=== PATIENT | female | born 1950 | race Caucasian/White ===

== ENCOUNTER 2017-06-04 22:21 | Inpatient (IN) | payer OTHER ==
[2017-06-04] MEDS: DEXTROSE 5%-0.9% NACL 1,000 ML IV (23:30)
[2017-06-05] MEDS: LEVOTHYROXINE 50 MCG TAB PO (05:54)
[2017-06-05] MEDS: PANTOPRAZOLE 40 MG INJ IV (05:54)
[2017-06-05] MEDS: BUPROPION (SR) 150 MG TAB PO ×2 (09:00→09:55)
[2017-06-05] MEDS: ASPIRIN 81 MG TAB GTB (09:00)
[2017-06-05] MEDS: OXYBUTYNIN 5 MG TAB PO ×4 (09:00→20:53)
[2017-06-05] MEDS: CALCIUM CARBONATE 1.25 GM TAB GTB ×3 (09:00→20:57)
[2017-06-05] MEDS: LORAZEPAM 1 MG TAB PO ×2 (09:00→20:55)
[2017-06-05] MEDS ORDERED: CEFTRIAXONE 1 GM INJ IVPB (09:00)
[2017-06-05] MEDS: GABAPENTIN 300 MG CAP PO ×4 (09:00→20:53)
[2017-06-05] MEDS: CEFTRIAXONE 1 GM/NS 50 ML IVPB (09:39)
[2017-06-05] MEDS: LORAZEPAM 2 MG INJ IV (11:37)
[2017-06-05] MEDS: DEXTROSE 5%-0.9% NACL 1,000 ML IV (14:51)
[2017-06-05] MEDS: LEVOFLOXACIN 500MG/D5W (PMX) 100 ML IVPB (16:27)
[2017-06-05 17:02] LABS: INR 1.07; PT RATIO 1.1
[2017-06-05 17:14] LABS: ALANINE AMINOTRANSFERASE 24 IU/L (13-69); ALBUMIN 3.3 g/dl (3.3-4.9); ALBUMIN/GLOBULIN RATIO 1.37; ALKALINE PHOSPHATASE 51 IU/L (42-121); ANION GAP 12 (8-16); ASPARTATE AMINO TRANSFERASE 18 IU/L (15-46); BLOOD UREA NITROGEN 5 mg/dl (7-20); CALCIUM 8.5 mg/dl (8.4-10.2); CARBON DIOXIDE 28 mmol/L (21-31); CHLORIDE 108 mmol/L (97-110); CREATININE 0.75 mg/dl (0.44-1.00); GLUCOSE 99 mg/dl (70-220); POTASSIUM 3.8 mmol/L (3.5-5.1); SODIUM 144 mmol/L (135-144); TOTAL PROTEIN 5.7 g/dl (6.1-8.1)
[2017-06-05] MEDS: metroNIDAZOLE 500 MG/NS (PMX) 100 ML IVPB ×2 (17:43→22:07)
[2017-06-05] MEDS: ATORVASTATIN 20 MG TAB PO (20:51)
[2017-06-05] MEDS: traZODone 100 MG TAB PO (20:51)
[2017-06-05] MEDS: IMIPRAMINE 25 MG TAB PO (20:53)
[2017-06-05] MEDS: ASPIRIN 81 MG TAB PO (20:53)
[2017-06-05] MEDS: DIVALPROEX (ER) 500 MG TAB PO (20:56)
[2017-06-06] MEDS: DEXTROSE 5%-0.9% NACL 1,000 ML IV ×2 (04:06→17:13)
[2017-06-06 05:16] LABS: ADD MAN DIFF? NO
[2017-06-06 05:27] LABS: BASOPHILS % 0.5 % (0.0-2.0); EOSINOPHILS # 0.9 10^3/ul (0.0-0.5); EOSINOPHILS % 14.8 % (0.0-7.0); HEMATOCRIT 35.3 % (37.0-47.0); HEMOGLOBIN 11.5 g/dl (12.0-16.0); LYMPHOCYTES # 1.5 10^3/ul (0.8-2.9); LYMPHOCYTES % 26.7 % (15.0-51.0); MEAN CORPUSCULAR HEMOGLOBIN 32.4 pg (29.0-33.0); MEAN CORPUSCULAR HGB CONC 32.6 g/dl (32.0-37.0); MEAN CORPUSCULAR VOLUME 99.4 fl (82.0-101.0); MEAN PLATELET VOLUME 10.3 fl (7.4-10.4); MONOCYTE # 0.5 10^3/ul (0.3-0.9); MONOCYTES % 9.4 % (0.0-11.0); NEUTROPHIL # 2.8 10^3/ul (1.6-7.5); NEUTROPHILS % 48.1 % (39.0-77.0); PLATELET COUNT 143 10^3/UL (140-415); RED BLOOD COUNT 3.55 10^6/ul (4.20-5.40); RED CELL DISTRIBUTION WIDTH 12.8 % (11.5-14.5)
[2017-06-06 05:27] LABS: WHITE BLOOD COUNT 5.8 10^3/ul (4.8-10.8)
[2017-06-06] MEDS: PANTOPRAZOLE 40 MG INJ IV (05:30)
[2017-06-06] MEDS: LEVOTHYROXINE 50 MCG TAB PO (05:30)
[2017-06-06] MEDS: metroNIDAZOLE 500 MG/NS (PMX) 100 ML IVPB ×3 (05:31→21:35)
[2017-06-06 05:46] LABS: ALANINE AMINOTRANSFERASE 24 IU/L (13-69); ALBUMIN 2.8 g/dl (3.3-4.9); ALBUMIN/GLOBULIN RATIO 1.21; ALKALINE PHOSPHATASE 47 IU/L (42-121); AMYLASE 31 U/L (11-123); ANION GAP 11 (8-16); ASPARTATE AMINO TRANSFERASE 16 IU/L (15-46); BLOOD UREA NITROGEN 4 mg/dl (7-20); CALCIUM 8.7 mg/dl (8.4-10.2); CARBON DIOXIDE 29 mmol/L (21-31); CHLORIDE 111 mmol/L (97-110); CREATININE 0.84 mg/dl (0.44-1.00); GLUCOSE 122 mg/dl (70-220); LIPASE 34 U/L (23-300); POTASSIUM 3.7 mmol/L (3.5-5.1); SODIUM 147 mmol/L (135-144); TOTAL PROTEIN 5.1 g/dl (6.1-8.1)
[2017-06-06] MEDS: CEFTRIAXONE 1 GM/50 ML (PMX) 50 ML IVPB (08:27)
[2017-06-06] MEDS: BUPROPION (SR) 150 MG TAB PO (09:00)
[2017-06-06] MEDS: CALCIUM CARBONATE 1.25 GM TAB GTB ×2 (09:00→20:21)
[2017-06-06] MEDS: GABAPENTIN 300 MG CAP PO ×3 (09:00→20:20)
[2017-06-06] MEDS: OXYBUTYNIN 5 MG TAB PO ×3 (09:00→20:24)
[2017-06-06] MEDS ORDERED: FENTAnyl 50 MCG/ML VIAL (11:22)
[2017-06-06] MEDS ORDERED: ROCURONIUM 50 MG INJ (11:23)
[2017-06-06] MEDS ORDERED: PROPOFOL 20 ML (11:23)
[2017-06-06] MEDS ORDERED: LIDOCAINE 2% (SDV) 5 ML INJ (11:23)
[2017-06-06] MEDS ORDERED: ONDANSETRON 4 MG INJ (11:23)
[2017-06-06] MEDS ORDERED: SUGAMMADEX SODIUM 200 MG/2 ML VIAL IV (11:24)
[2017-06-06] MEDS ORDERED: CIPROFLOXACIN 400MG/D5W 200 ML (12:08)
[2017-06-06] MEDS ORDERED: ONDANSETRON 4 MG INJ IV (13:30)
[2017-06-06] MEDS: FENTAnyl 50 MCG/ML VIAL IV (13:45)
[2017-06-06] MEDS: INDOMETHACIN 50 MG SUPP PR (14:00)
[2017-06-06] MEDS: HYDROCODONE/APAP (5/325) TAB PO (17:10)
[2017-06-06] MEDS: ACETAMINOPHEN 325 MG TAB PO (19:52)
[2017-06-06] MEDS: ATORVASTATIN 20 MG TAB PO (20:23)
[2017-06-06] MEDS: traZODone 100 MG TAB PO (20:23)
[2017-06-06] MEDS: ASPIRIN 81 MG TAB PO (20:23)
[2017-06-06] MEDS: IMIPRAMINE 25 MG TAB PO (20:24)
[2017-06-06] MEDS: LORAZEPAM 1 MG TAB PO (20:24)
[2017-06-06] MEDS: DIVALPROEX (ER) 500 MG TAB PO (21:34)
[2017-06-06] MEDS: morphine 2 MG INJ IV (22:15)
[2017-06-07] MEDS: morphine 2 MG INJ IV ×3 (02:02→13:56)
[2017-06-07 05:29] LABS: ADD MAN DIFF? NO; BASOPHILS % 0.2 % (0.0-2.0); EOSINOPHILS # 0.9 10^3/ul (0.0-0.5); EOSINOPHILS % 8.1 % (0.0-7.0); HEMATOCRIT 37.1 % (37.0-47.0); HEMOGLOBIN 12.4 g/dl (12.0-16.0); LYMPHOCYTES % 9.3 % (15.0-51.0); MEAN CORPUSCULAR HEMOGLOBIN 32.2 pg (29.0-33.0); MEAN CORPUSCULAR HGB CONC 33.4 g/dl (32.0-37.0); MEAN CORPUSCULAR VOLUME 96.4 fl (82.0-101.0); MEAN PLATELET VOLUME 10.3 fl (7.4-10.4); MONOCYTE # 0.5 10^3/ul (0.3-0.9); MONOCYTES % 4.2 % (0.0-11.0); NEUTROPHIL # 8.3 10^3/ul (1.6-7.5); NEUTROPHILS % 77.5 % (39.0-77.0); PLATELET COUNT 152 10^3/UL (140-415); RED BLOOD COUNT 3.85 10^6/ul (4.20-5.40); RED CELL DISTRIBUTION WIDTH 12.7 % (11.5-14.5)
[2017-06-07 05:29] LABS: WHITE BLOOD COUNT 10.7 10^3/ul (4.8-10.8)
[2017-06-07 05:42] LABS: ALANINE AMINOTRANSFERASE 24 IU/L (13-69); ALBUMIN 3.1 g/dl (3.3-4.9); ALBUMIN/GLOBULIN RATIO 1.24; ALKALINE PHOSPHATASE 62 IU/L (42-121); ANION GAP 13 (8-16); ASPARTATE AMINO TRANSFERASE 18 IU/L (15-46); BILIRUBIN,INDIRECT 0.1 mg/dl (0-1.1); BILIRUBIN,TOTAL 0.1 mg/dl (0.2-1.3); BLOOD UREA NITROGEN 5 mg/dl (7-20); CALCIUM 8.5 mg/dl (8.4-10.2); CARBON DIOXIDE 26 mmol/L (21-31); CHLORIDE 101 mmol/L (97-110); GLUCOSE 154 mg/dl (70-220); POTASSIUM 3.9 mmol/L (3.5-5.1); SODIUM 136 mmol/L (135-144); TOTAL PROTEIN 5.6 g/dl (6.1-8.1)
[2017-06-07 05:58] LABS: MAGNESIUM 1.5 mg/dl (1.7-2.5)
[2017-06-07 05:58] LABS: PHOSPHORUS 2.6 mg/dl (2.5-4.9)
[2017-06-07] MEDS: metroNIDAZOLE 500 MG/NS (PMX) 100 ML IVPB ×3 (06:03→23:07)
[2017-06-07] MEDS: PANTOPRAZOLE 40 MG INJ IV (06:03)
[2017-06-07] MEDS: LEVOTHYROXINE 50 MCG TAB PO (06:03)
[2017-06-07] MEDS: OXYBUTYNIN 5 MG TAB PO ×3 (08:33→20:41)
[2017-06-07] MEDS: GABAPENTIN 300 MG CAP PO ×3 (08:33→20:41)
[2017-06-07] MEDS: CEFTRIAXONE 1 GM/50 ML (PMX) 50 ML IVPB (08:33)
[2017-06-07] MEDS: CALCIUM CARBONATE 1.25 GM TAB GTB (08:34)
[2017-06-07] MEDS: BUPROPION (SR) 150 MG TAB PO (08:45)
[2017-06-07] MEDS: DEXTROSE 5%-0.9% NACL 1,000 ML IV (08:47)
[2017-06-07] MEDS: MAGNESIUM SULFATE 3 GM in DEXTROSE 5% 100 ML IVPB (13:57)
[2017-06-07] MEDS: ONDANSETRON 4 MG INJ IV (16:31)
[2017-06-07] MEDS: BISACODYL (EC) 5 MG TAB PO (16:31)
[2017-06-07] MEDS ORDERED: ONDANSETRON 4 MG INJ IV (17:00)
[2017-06-07] MEDS: traZODone 100 MG TAB PO (20:41)
[2017-06-07] MEDS: DIVALPROEX (ER) 500 MG TAB PO (20:41)
[2017-06-07] MEDS: ATORVASTATIN 20 MG TAB PO (20:41)
[2017-06-07] MEDS: ASPIRIN 81 MG TAB PO (20:41)
[2017-06-07] MEDS: IMIPRAMINE 25 MG TAB PO (20:41)
[2017-06-07] MEDS: LORAZEPAM 1 MG TAB PO (20:43)
[2017-06-07] MEDS: LUBIPROSTONE 24 MCG CAP PO (20:44)
[2017-06-08] MEDS: morphine 2 MG INJ IV ×3 (02:02→13:41)
[2017-06-08] MEDS: LEVOTHYROXINE 50 MCG TAB PO (06:00)
[2017-06-08] MEDS: metroNIDAZOLE 500 MG/NS (PMX) 100 ML IVPB ×3 (06:00→23:20)
[2017-06-08] MEDS: PANTOPRAZOLE 40 MG INJ IV (06:00)
[2017-06-08 06:14] LABS: ADD MAN DIFF? NO
[2017-06-08 06:19] LABS: WHITE BLOOD COUNT 12.5 10^3/ul (4.8-10.8)
[2017-06-08 06:19] LABS: BASOPHILS % 0.2 % (0.0-2.0); EOSINOPHILS # 1.3 10^3/ul (0.0-0.5); EOSINOPHILS % 10.2 % (0.0-7.0); HEMATOCRIT 40.3 % (37.0-47.0); HEMOGLOBIN 13.5 g/dl (12.0-16.0); LYMPHOCYTES # 1.5 10^3/ul (0.8-2.9); LYMPHOCYTES % 12.4 % (15.0-51.0); MEAN CORPUSCULAR HEMOGLOBIN 32.3 pg (29.0-33.0); MEAN CORPUSCULAR HGB CONC 33.5 g/dl (32.0-37.0); MEAN CORPUSCULAR VOLUME 96.4 fl (82.0-101.0); MEAN PLATELET VOLUME 10.5 fl (7.4-10.4); MONOCYTE # 0.9 10^3/ul (0.3-0.9); MONOCYTES % 7.1 % (0.0-11.0); NEUTROPHIL # 8.7 10^3/ul (1.6-7.5); NEUTROPHILS % 69.7 % (39.0-77.0); PLATELET COUNT 166 10^3/UL (140-415); RED BLOOD COUNT 4.18 10^6/ul (4.20-5.40); RED CELL DISTRIBUTION WIDTH 12.8 % (11.5-14.5)
[2017-06-08 06:44] LABS: PHOSPHORUS 3.3 mg/dl (2.5-4.9)
[2017-06-08 06:44] LABS: MAGNESIUM 2.3 mg/dl (1.7-2.5)
[2017-06-08 06:54] LABS: ALANINE AMINOTRANSFERASE 21 IU/L (13-69); ALBUMIN 3.2 g/dl (3.3-4.9); ALBUMIN/GLOBULIN RATIO 1.28; ALKALINE PHOSPHATASE 72 IU/L (42-121); ANION GAP 14 (8-16); ASPARTATE AMINO TRANSFERASE 18 IU/L (15-46); BILIRUBIN,INDIRECT 0.1 mg/dl (0-1.1); BILIRUBIN,TOTAL 0.1 mg/dl (0.2-1.3); BLOOD UREA NITROGEN 9 mg/dl (7-20); CALCIUM 8.6 mg/dl (8.4-10.2); CARBON DIOXIDE 26 mmol/L (21-31); CHLORIDE 104 mmol/L (97-110); CREATININE 0.82 mg/dl (0.44-1.00); GLUCOSE 100 mg/dl (70-220); POTASSIUM 3.4 mmol/L (3.5-5.1); SODIUM 141 mmol/L (135-144); TOTAL PROTEIN 5.7 g/dl (6.1-8.1)
[2017-06-08] MEDS: OXYBUTYNIN 5 MG TAB PO ×3 (07:58→20:30)
[2017-06-08] MEDS: LUBIPROSTONE 24 MCG CAP PO ×2 (07:58→20:31)
[2017-06-08] MEDS: CEFTRIAXONE 1 GM/50 ML (PMX) 50 ML IVPB (07:58)
[2017-06-08] MEDS: GABAPENTIN 300 MG CAP PO ×3 (07:59→20:31)
[2017-06-08] MEDS: BUPROPION (SR) 150 MG TAB PO (08:04)
[2017-06-08] MEDS: POTASSIUM CHLORIDE (SR) 20 MEQ TAB PO (10:13)
[2017-06-08] MEDS: BISACODYL (EC) 5 MG TAB PO (16:51)
[2017-06-08] MEDS: BISACODYL 10 MG SUPP PR (16:51)
[2017-06-08] MEDS: PANTOPRAZOLE (EC) 40 MG TAB PO (17:53)
[2017-06-08] MEDS: ATORVASTATIN 20 MG TAB PO (20:31)
[2017-06-08] MEDS: DIVALPROEX (ER) 500 MG TAB PO (20:31)
[2017-06-08] MEDS: ASPIRIN 81 MG TAB PO (20:31)
[2017-06-08] MEDS: LORAZEPAM 1 MG TAB PO (20:31)
[2017-06-08] MEDS: IMIPRAMINE 25 MG TAB PO (20:31)
[2017-06-08] MEDS: traZODone 100 MG TAB PO (20:31)
[2017-06-09] MEDS: NA PHOSPHATE/BIPHOS 133 ML ENEMA PR (01:11)
[2017-06-09] MEDS ORDERED: PANTOPRAZOLE (EC) 40 MG TAB PO (06:00)
[2017-06-09] MEDS: LEVOTHYROXINE 50 MCG TAB PO (06:18)
[2017-06-09] MEDS: PANTOPRAZOLE (EC) 40 MG TAB PO ×2 (06:18→18:33)
[2017-06-09] MEDS: metroNIDAZOLE 500 MG/NS (PMX) 100 ML IVPB ×3 (06:19→22:19)
[2017-06-09 06:36] LABS: ADD MAN DIFF? NO
[2017-06-09 06:40] LABS: ANION GAP 13 (8-16); BLOOD UREA NITROGEN 15 mg/dl (7-20); CALCIUM 8.3 mg/dl (8.4-10.2); CARBON DIOXIDE 28 mmol/L (21-31); CHLORIDE 101 mmol/L (97-110); CREATININE 0.89 mg/dl (0.44-1.00); GLUCOSE 105 mg/dl (70-220); POTASSIUM 3.9 mmol/L (3.5-5.1); SODIUM 138 mmol/L (135-144)
[2017-06-09] MEDS: LUBIPROSTONE 24 MCG CAP PO ×2 (09:36→20:13)
[2017-06-09] MEDS: GABAPENTIN 300 MG CAP PO ×3 (09:36→20:13)
[2017-06-09] MEDS: BUPROPION (SR) 150 MG TAB PO (09:37)
[2017-06-09] MEDS: OXYBUTYNIN 5 MG TAB PO ×3 (09:42→20:13)
[2017-06-09] MEDS: BISACODYL (EC) 5 MG TAB PO (09:42)
[2017-06-09 10:16] LABS: WHITE BLOOD COUNT 14.8 10^3/ul (4.8-10.8)
[2017-06-09 10:16] LABS: HEMATOCRIT 37.4 % (37.0-47.0); HEMOGLOBIN 12.5 g/dl (12.0-16.0); MEAN CORPUSCULAR HEMOGLOBIN 32.7 pg (29.0-33.0); MEAN CORPUSCULAR HGB CONC 33.4 g/dl (32.0-37.0); MEAN CORPUSCULAR VOLUME 97.9 fl (82.0-101.0); RED BLOOD COUNT 3.82 10^6/ul (4.20-5.40)
[2017-06-09 10:17] LABS: BASOPHILS % 0.2 % (0.0-2.0); EOSINOPHILS % 4.5 % (0.0-7.0); LYMPHOCYTES % 10.6 % (15.0-51.0); MEAN PLATELET VOLUME 10.2 fl (7.4-10.4); MONOCYTES % 9.3 % (0.0-11.0); NEUTROPHILS % 74.7 % (39.0-77.0); PLATELET COUNT 139 10^3/UL (140-415); RED CELL DISTRIBUTION WIDTH 13.1 % (11.5-14.5)
[2017-06-09] MEDS: CEFTRIAXONE 1 GM/50 ML (PMX) 50 ML IVPB (10:21)
[2017-06-09] MEDS: HYDROCODONE/APAP (5/325) TAB PO (12:32)
[2017-06-09] MEDS: BISACODYL 10 MG SUPP PR (12:46)
[2017-06-09] MEDS: MEROPENEM 1 GM/50ML(PMX) 50 ML IVPB ×2 (15:35→23:18)
[2017-06-09 18:30] LABS: ADD UMIC YES; UR ASCORBIC ACID NEGATIVE (NEGATIVE); UR BILIRUBIN (Dip) NEGATIVE (NEGATIVE); UR BLOOD (Dip) 1+ mg/dL (NEGATIVE); UR CLARITY CLEAR (CLEAR); UR COLOR YELLOW (YELLOW); UR GLUCOSE (Dip) NEGATIVE (NEGATIVE); UR KETONES (Dip) TRACE mg/dL (NEGATIVE); UR LEUKOCYTE ESTERASE (Dip) NEGATIVE Leu/ul (NEGATIVE); UR NITRITE (Dip) NEGATIVE (NEGATIVE); UR RBC 2 /HPF (0-5); UR SPECIFIC GRAVITY (Dip) 1.006 (1.003-1.030); UR TOTAL PROTEIN (Dip) NEGATIVE (NEGATIVE); UR UROBILINOGEN (Dip) NEGATIVE (NEGATIVE); UR WBC 1 /HPF (0-5)
[2017-06-09] MEDS: traZODone 100 MG TAB PO (20:13)
[2017-06-09] MEDS: ACETAMINOPHEN 325 MG TAB PO (20:14)
[2017-06-09] MEDS: DIVALPROEX (ER) 500 MG TAB PO (20:14)
[2017-06-09] MEDS: ASPIRIN 81 MG TAB PO (20:14)
[2017-06-09] MEDS: IMIPRAMINE 25 MG TAB PO (20:14)
[2017-06-09] MEDS: ATORVASTATIN 20 MG TAB PO (20:25)
[2017-06-09] MEDS: LORAZEPAM 1 MG TAB PO (20:30)
[2017-06-10] MEDS: PANTOPRAZOLE (EC) 40 MG TAB PO ×2 (06:00→18:00)
[2017-06-10] MEDS: LEVOTHYROXINE 50 MCG TAB PO (06:05)
[2017-06-10] MEDS: metroNIDAZOLE 500 MG/NS (PMX) 100 ML IVPB ×3 (06:06→20:31)
[2017-06-10] MEDS: ACETAMINOPHEN 325 MG TAB PO ×3 (06:09→21:28)
[2017-06-10 06:32] LABS: ADD MAN DIFF? NO
[2017-06-10 06:42] LABS: WHITE BLOOD COUNT 14.4 10^3/ul (4.8-10.8)
[2017-06-10 06:42] LABS: BASOPHILS % 0.3 % (0.0-2.0); EOSINOPHILS # 1.7 10^3/ul (0.0-0.5); EOSINOPHILS % 11.5 % (0.0-7.0); HEMATOCRIT 37.2 % (37.0-47.0); HEMOGLOBIN 12.2 g/dl (12.0-16.0); LYMPHOCYTES # 1.1 10^3/ul (0.8-2.9); LYMPHOCYTES % 7.8 % (15.0-51.0); MEAN CORPUSCULAR HEMOGLOBIN 32.6 pg (29.0-33.0); MEAN CORPUSCULAR HGB CONC 32.8 g/dl (32.0-37.0); MEAN CORPUSCULAR VOLUME 99.5 fl (82.0-101.0); MEAN PLATELET VOLUME 10.8 fl (7.4-10.4); MONOCYTE # 1.3 10^3/ul (0.3-0.9); MONOCYTES % 8.8 % (0.0-11.0); NEUTROPHIL # 10.2 10^3/ul (1.6-7.5); NEUTROPHILS % 70.8 % (39.0-77.0); PLATELET COUNT 152 10^3/UL (140-415); RED BLOOD COUNT 3.74 10^6/ul (4.20-5.40); RED CELL DISTRIBUTION WIDTH 13.2 % (11.5-14.5)
[2017-06-10 08:17] LABS: CARCINOEMBRYONIC ANTIGEN 1.1 ng/ml (0.0-5.0)
[2017-06-10] MEDS: MEROPENEM 1 GM/50ML(PMX) 50 ML IVPB ×2 (09:34→21:56)
[2017-06-10] MEDS: LUBIPROSTONE 24 MCG CAP PO ×2 (09:37→20:36)
[2017-06-10] MEDS: OXYBUTYNIN 5 MG TAB PO ×3 (09:37→20:42)
[2017-06-10] MEDS: GABAPENTIN 300 MG CAP PO ×3 (09:50→20:37)
[2017-06-10] MEDS: BUPROPION (SR) 150 MG TAB PO (09:51)
[2017-06-10] MEDS: ASPIRIN 81 MG TAB PO (20:37)
[2017-06-10] MEDS: IMIPRAMINE 25 MG TAB PO (20:37)
[2017-06-10] MEDS: DIVALPROEX (ER) 500 MG TAB PO (20:37)
[2017-06-10] MEDS: traZODone 100 MG TAB PO (20:37)
[2017-06-10] MEDS: LORAZEPAM 1 MG TAB PO (20:37)
[2017-06-10] MEDS: ATORVASTATIN 20 MG TAB PO (20:37)
[2017-06-11 00:24] LABS: OCCULT BLOOD STOOL NEGATIVE (NEGATIVE)
[2017-06-11] MEDS: HYDROCODONE/APAP (5/325) TAB PO (01:58)
[2017-06-11] MEDS: metroNIDAZOLE 500 MG/NS (PMX) 100 ML IVPB ×3 (05:47→22:17)
[2017-06-11] MEDS: PANTOPRAZOLE (EC) 40 MG TAB PO ×2 (05:47→17:52)
[2017-06-11] MEDS: LEVOTHYROXINE 50 MCG TAB PO (05:47)
[2017-06-11 06:22] LABS: ADD MAN DIFF? NO
[2017-06-11 06:32] LABS: WHITE BLOOD COUNT 12.4 10^3/ul (4.8-10.8)
[2017-06-11 06:32] LABS: BASOPHILS % 0.3 % (0.0-2.0); EOSINOPHILS # 1.9 10^3/ul (0.0-0.5); EOSINOPHILS % 15.3 % (0.0-7.0); HEMATOCRIT 34.5 % (37.0-47.0); HEMOGLOBIN 11.3 g/dl (12.0-16.0); LYMPHOCYTES # 1.8 10^3/ul (0.8-2.9); LYMPHOCYTES % 14.7 % (15.0-51.0); MEAN CORPUSCULAR HEMOGLOBIN 32.3 pg (29.0-33.0); MEAN CORPUSCULAR HGB CONC 32.8 g/dl (32.0-37.0); MEAN CORPUSCULAR VOLUME 98.6 fl (82.0-101.0); MEAN PLATELET VOLUME 10.6 fl (7.4-10.4); MONOCYTES % 8.1 % (0.0-11.0); NEUTROPHIL # 7.5 10^3/ul (1.6-7.5); NEUTROPHILS % 60.6 % (39.0-77.0); PLATELET COUNT 148 10^3/UL (140-415); RED CELL DISTRIBUTION WIDTH 13.2 % (11.5-14.5)
[2017-06-11] MEDS: GABAPENTIN 300 MG CAP PO ×3 (08:19→21:24)
[2017-06-11] MEDS: LUBIPROSTONE 24 MCG CAP PO ×2 (08:19→21:23)
[2017-06-11] MEDS: BUPROPION (SR) 150 MG TAB PO (08:19)
[2017-06-11] MEDS: OXYBUTYNIN 5 MG TAB PO ×3 (08:19→21:23)
[2017-06-11] MEDS: MEROPENEM 1 GM/50ML(PMX) 50 ML IVPB ×2 (09:28→21:24)
[2017-06-11] MEDS: DIVALPROEX (ER) 500 MG TAB PO (21:23)
[2017-06-11] MEDS: ASPIRIN 81 MG TAB PO (21:23)
[2017-06-11] MEDS: ATORVASTATIN 20 MG TAB PO (21:24)
[2017-06-11] MEDS: IMIPRAMINE 25 MG TAB PO (21:24)
[2017-06-11] MEDS: LORAZEPAM 1 MG TAB PO (21:24)
[2017-06-11] MEDS: traZODone 100 MG TAB PO (21:24)
[2017-06-11] MEDS: DEXTROSE 5%-0.45% NACL 1,000 ML IV (23:45)
[2017-06-12 05:14] LABS: ADD MAN DIFF? NO
[2017-06-12] MEDS: PANTOPRAZOLE (EC) 40 MG TAB PO ×2 (05:15→19:05)
[2017-06-12] MEDS: metroNIDAZOLE 500 MG/NS (PMX) 100 ML IVPB ×2 (05:15→14:00)
[2017-06-12] MEDS: LEVOTHYROXINE 50 MCG TAB PO (05:15)
[2017-06-12 05:22] LABS: BASOPHIL # 0.1 10^3/ul (0.0-0.1); BASOPHILS % 0.7 % (0.0-2.0); EOSINOPHILS % 8.6 % (0.0-7.0); HEMATOCRIT 35.1 % (37.0-47.0); HEMOGLOBIN 11.3 g/dl (12.0-16.0); MEAN CORPUSCULAR HEMOGLOBIN 31.5 pg (29.0-33.0); MEAN CORPUSCULAR HGB CONC 32.2 g/dl (32.0-37.0); MEAN CORPUSCULAR VOLUME 97.8 fl (82.0-101.0); MEAN PLATELET VOLUME 10.1 fl (7.4-10.4); MONOCYTE # 1.1 10^3/ul (0.3-0.9); MONOCYTES % 9.5 % (0.0-11.0); NEUTROPHIL # 7.5 10^3/ul (1.6-7.5); NEUTROPHILS % 63.4 % (39.0-77.0); NUCLEATED RED BLOOD CELLS% 0.2 /100WBC (0.0-0.0); PLATELET COUNT 184 10^3/UL (140-415); RED BLOOD COUNT 3.59 10^6/ul (4.20-5.40); RED CELL DISTRIBUTION WIDTH 13.6 % (11.5-14.5)
[2017-06-12 05:22] LABS: WHITE BLOOD COUNT 11.9 10^3/ul (4.8-10.8)
[2017-06-12 05:44] LABS: PHOSPHORUS 3.9 mg/dl (2.5-4.9)
[2017-06-12 05:44] LABS: MAGNESIUM 1.6 mg/dl (1.7-2.5)
[2017-06-12 05:48] LABS: ALANINE AMINOTRANSFERASE 26 IU/L (13-69); ALBUMIN 3.3 g/dl (3.3-4.9); ALKALINE PHOSPHATASE 75 IU/L (42-121); ANION GAP 16 (8-16); ASPARTATE AMINO TRANSFERASE 20 IU/L (15-46); BLOOD UREA NITROGEN 9 mg/dl (7-20); CALCIUM 8.9 mg/dl (8.4-10.2); CARBON DIOXIDE 27 mmol/L (21-31); CHLORIDE 102 mmol/L (97-110); CREATININE 0.74 mg/dl (0.44-1.00); GLUCOSE 99 mg/dl (70-220); POTASSIUM 3.7 mmol/L (3.5-5.1); SODIUM 141 mmol/L (135-144); TOTAL PROTEIN 6.3 g/dl (6.1-8.1)
[2017-06-12] MEDS: GABAPENTIN 300 MG CAP PO ×3 (08:37→21:27)
[2017-06-12] MEDS: OXYBUTYNIN 5 MG TAB PO ×3 (08:37→21:27)
[2017-06-12] MEDS: MEROPENEM 1 GM/50ML(PMX) 50 ML IVPB ×2 (08:40→21:52)
[2017-06-12] MEDS: LUBIPROSTONE 24 MCG CAP PO ×2 (08:40→21:27)
[2017-06-12] MEDS: BUPROPION (SR) 150 MG TAB PO (08:42)
[2017-06-12] MEDS: DEXTROSE 5%-0.45% NACL 1,000 ML IV (12:20)
[2017-06-12] MEDS ORDERED: IOHEXOL 300MG/ML 30 ML BTL (13:37)
[2017-06-12] MEDS: MAGNESIUM OXIDE 400 MG TAB PO (21:27)
[2017-06-12] MEDS: ATORVASTATIN 20 MG TAB PO (21:27)
[2017-06-12] MEDS: IMIPRAMINE 25 MG TAB PO (21:27)
[2017-06-12] MEDS: HYDROCODONE/APAP (5/325) TAB PO (21:27)
[2017-06-12] MEDS: LORAZEPAM 1 MG TAB PO (21:28)
[2017-06-12] MEDS: traZODone 100 MG TAB PO (21:28)
[2017-06-12] MEDS: DIVALPROEX (ER) 500 MG TAB PO (21:52)
[2017-06-13] MEDS: LORAZEPAM 2 MG INJ IV (00:34)
[2017-06-13] MEDS: LEVOTHYROXINE 50 MCG TAB PO (05:14)
[2017-06-13] MEDS: PANTOPRAZOLE (EC) 40 MG TAB PO ×2 (05:14→17:55)
[2017-06-13] MEDS: MAGNESIUM OXIDE 400 MG TAB PO (09:00)
[2017-06-13] MEDS: OXYBUTYNIN 5 MG TAB PO ×3 (09:00→20:34)
[2017-06-13] MEDS: LUBIPROSTONE 24 MCG CAP PO ×2 (09:00→20:33)
[2017-06-13] MEDS: GABAPENTIN 300 MG CAP PO ×3 (09:00→20:34)
[2017-06-13] MEDS: BUPROPION (SR) 150 MG TAB PO (09:00)
[2017-06-13] MEDS: MEROPENEM 1 GM/50ML(PMX) 50 ML IVPB ×2 (11:28→20:33)
[2017-06-13] MEDS ORDERED: LIDOCAINE 1% (MPF) 30 ML INJ (12:59)
[2017-06-13] MEDS ORDERED: BUPIVACAINE 0.25%/EPI (SDV) 30 ML INJ (12:59)
[2017-06-13] MEDS ORDERED: MIDAZOLAM 1 MG/ML 2 ML INJ (13:13)
[2017-06-13] MEDS ORDERED: METOCLOPRAMIDE 10 MG INJ (13:14)
[2017-06-13] MEDS ORDERED: ONDANSETRON 4 MG INJ IV (13:30)
[2017-06-13] MEDS ORDERED: HYDROmorphONE (0.2 MG/ML) 10ML SYG IV ×3 (13:30)
[2017-06-13] MEDS ORDERED: MEPERIDINE 25 MG INJ IV (13:30)
[2017-06-13] MEDS ORDERED: DIPHENHYDRAMINE 50 MG INJ IV (13:30)
[2017-06-13] MEDS ORDERED: NEOSTIGMINE 3 MG/3 ML SYRINGE (13:56)
[2017-06-13] MEDS ORDERED: ROCURONIUM 50 MG INJ (13:56)
[2017-06-13] MEDS ORDERED: KETOROLAC 30 MG INJ (13:56)
[2017-06-13] MEDS ORDERED: PROPOFOL 20 ML (13:56)
[2017-06-13] MEDS ORDERED: ROPIVACAINE 0.5 % 30 ML VIAL (13:58)
[2017-06-13] MEDS ORDERED: ONDANSETRON 4 MG INJ (13:58)
[2017-06-13] MEDS: LIDOCAINE 1% (MPF) 30 ML INJ (14:00)
[2017-06-13] MEDS: BUPIVACAINE 0.25%/EPI (SDV) 30 ML INJ (14:01)
[2017-06-13] MEDS ORDERED: FENTAnyl 50 MCG/ML VIAL (14:26)
[2017-06-13] MEDS: LORAZEPAM 1 MG TAB PO (20:33)
[2017-06-13] MEDS: ATORVASTATIN 20 MG TAB PO (20:34)
[2017-06-13] MEDS: traZODone 100 MG TAB PO (20:34)
[2017-06-13] MEDS: DIVALPROEX (ER) 500 MG TAB PO (20:34)
[2017-06-13] MEDS: ASPIRIN 81 MG TAB PO (20:34)
[2017-06-13] MEDS: IMIPRAMINE 25 MG TAB PO (20:34)
[2017-06-13] MEDS: HYDROCODONE/APAP (5/325) TAB PO (20:36)
[2017-06-14] MEDS ORDERED: HYDROCODONE/APAP (10/325) TAB PO (00:30)
[2017-06-14] MEDS ORDERED: MAGNESIUM HYDROXIDE 30ML CUP PO (00:30)
[2017-06-14] MEDS: HYDROCODONE/APAP (5/325) TAB PO ×4 (01:49→23:22)
[2017-06-14 05:17] LABS: ADD MAN DIFF? NO
[2017-06-14 05:22] LABS: WHITE BLOOD COUNT 9.3 10^3/ul (4.8-10.8)
[2017-06-14 05:22] LABS: BASOPHIL # 0.1 10^3/ul (0.0-0.1); BASOPHILS % 0.6 % (0.0-2.0); EOSINOPHILS # 0.4 10^3/ul (0.0-0.5); EOSINOPHILS % 3.8 % (0.0-7.0); HEMOGLOBIN 11.9 g/dl (12.0-16.0); LYMPHOCYTES # 1.3 10^3/ul (0.8-2.9); LYMPHOCYTES % 14.4 % (15.0-51.0); MEAN CORPUSCULAR HEMOGLOBIN 32.2 pg (29.0-33.0); MEAN CORPUSCULAR HGB CONC 32.2 g/dl (32.0-37.0); MEAN CORPUSCULAR VOLUME 100.3 fl (82.0-101.0); MEAN PLATELET VOLUME 10.2 fl (7.4-10.4); MONOCYTE # 0.8 10^3/ul (0.3-0.9); NEUTROPHIL # 6.6 10^3/ul (1.6-7.5); NEUTROPHILS % 70.9 % (39.0-77.0); PLATELET COUNT 178 10^3/UL (140-415); RED BLOOD COUNT 3.69 10^6/ul (4.20-5.40); RED CELL DISTRIBUTION WIDTH 13.4 % (11.5-14.5)
[2017-06-14] MEDS: PANTOPRAZOLE (EC) 40 MG TAB PO ×2 (05:45→18:41)
[2017-06-14] MEDS: LEVOTHYROXINE 50 MCG TAB PO (05:45)
[2017-06-14 06:03] LABS: MAGNESIUM 1.9 mg/dl (1.7-2.5)
[2017-06-14 06:03] LABS: PHOSPHORUS 3.5 mg/dl (2.5-4.9)
[2017-06-14 06:09] LABS: ALANINE AMINOTRANSFERASE 44 IU/L (13-69); ALBUMIN/GLOBULIN RATIO 1.03; ALKALINE PHOSPHATASE 78 IU/L (42-121); ANION GAP 11 (8-16); ASPARTATE AMINO TRANSFERASE 64 IU/L (15-46); BILIRUBIN,INDIRECT 0.3 mg/dl (0-1.1); BILIRUBIN,TOTAL 0.3 mg/dl (0.2-1.3); BLOOD UREA NITROGEN 5 mg/dl (7-20); CARBON DIOXIDE 33 mmol/L (21-31); CHLORIDE 106 mmol/L (97-110); CREATININE 0.66 mg/dl (0.44-1.00); GLUCOSE 121 mg/dl (70-220); POTASSIUM 4.1 mmol/L (3.5-5.1); SODIUM 146 mmol/L (135-144); TOTAL PROTEIN 5.9 g/dl (6.1-8.1)
[2017-06-14] MEDS: MEROPENEM 1 GM/50ML(PMX) 50 ML IVPB (09:21)
[2017-06-14] MEDS: OXYBUTYNIN 5 MG TAB PO ×3 (09:22→20:32)
[2017-06-14] MEDS: BUPROPION (SR) 150 MG TAB PO (09:22)
[2017-06-14] MEDS: LUBIPROSTONE 24 MCG CAP PO ×2 (09:22→20:32)
[2017-06-14] MEDS: GABAPENTIN 300 MG CAP PO ×3 (09:24→20:32)
[2017-06-14] MEDS: BISACODYL (EC) 5 MG TAB PO (18:41)
[2017-06-14] MEDS: DIVALPROEX (ER) 500 MG TAB PO (20:32)
[2017-06-14] MEDS: ATORVASTATIN 20 MG TAB PO (20:32)
[2017-06-14] MEDS: traZODone 100 MG TAB PO (20:32)
[2017-06-14] MEDS: ASPIRIN 81 MG TAB PO (20:32)
[2017-06-14] MEDS: IMIPRAMINE 25 MG TAB PO (20:32)
[2017-06-14] MEDS: LORAZEPAM 1 MG TAB PO (20:33)
[2017-06-15] MEDS: ACETAMINOPHEN 325 MG TAB PO (02:34)
[2017-06-15] MEDS: PANTOPRAZOLE (EC) 40 MG TAB PO ×2 (06:00→07:37)
[2017-06-15] MEDS: LEVOTHYROXINE 50 MCG TAB PO ×2 (06:00→07:38)
[2017-06-15] MEDS: BUPROPION (SR) 150 MG TAB PO (08:31)
[2017-06-15] MEDS: LUBIPROSTONE 24 MCG CAP PO (08:31)
[2017-06-15] MEDS: HYDROCODONE/APAP (5/325) TAB PO ×3 (08:31→16:00)
[2017-06-15] MEDS: OXYBUTYNIN 5 MG TAB PO ×2 (08:31→12:22)
[2017-06-15] MEDS: GABAPENTIN 300 MG CAP PO ×2 (08:31→12:22)
== END 2017-06-15 19:15 | disposition home health service (06) | DRG 417 ==
LOC: MS1 22:21
PROC: 0FT44ZZ Resection of Gallbladder, Percutaneous Endoscopic Approach (ICD-10-PCS; principal; 2017-06-06 12:22)
PROC: 0FC98ZZ Extirpation of Matter from Common Bile Duct, Via Natural or Artificial Opening Endoscopic (ICD-10-PCS; 2017-06-06 12:22)
PROC: 0FB04ZX Excision of Liver, Percutaneous Endoscopic Approach, Diagnostic (ICD-10-PCS; 2017-06-06 12:22)
PROC: 0F798DZ Dilation of Common Bile Duct with Intraluminal Device, Via Natural or Artificial Opening Endoscopic (ICD-10-PCS; 2017-06-06 12:22)
DX: K80.64 Calculus of gallbladder and bile duct with chronic cholecystitis without obstruction (principal); K83.1 Obstruction of bile duct; F31.89 Other bipolar disorder; R44.3 Hallucinations, unspecified; K52.9 Noninfective gastroenteritis and colitis, unspecified; E03.9 Hypothyroidism, unspecified; E78.5 Hyperlipidemia, unspecified; M19.90 Unspecified osteoarthritis, unspecified site; N39.3 Stress incontinence (female) (male); K59.00 Constipation, unspecified; N32.81 Overactive bladder; E66.9 Obesity, unspecified; Z68.34 Body mass index [BMI] 34.0-34.9, adult; F31.9 Bipolar disorder, unspecified; K29.70 Gastritis, unspecified, without bleeding; F41.9 Anxiety disorder, unspecified
CPT/HCPCS: 74018; 74181; 74330; 78226; 80048; 80053; 81001; 82150; 82270; 82378; 83690; 83735; 84100; 85025; 85610; 87075; 87081; 87086; 88304; 88307; 88313

== ENCOUNTER 2017-08-23 22:43 | Inpatient (IN) | payer OTHER ==
[2017-08-23] MEDS: ACETAMINOPHEN 650 MG SUPP PR (22:57)
[2017-08-23] MEDS: SOD CHLORIDE 0.9% 2,250 ML IV (23:00)
[2017-08-23 23:09] LABS: ADD MAN DIFF? NO
[2017-08-23 23:11] LABS: BASOPHILS % 0.5 % (0.0-2.0); EOSINOPHILS % 0.4 % (0.0-7.0); HEMATOCRIT 31.3 % (37.0-47.0); HEMOGLOBIN 10.2 g/dl (12.0-16.0); LYMPHOCYTES # 0.8 10^3/ul (0.8-2.9); LYMPHOCYTES % 9.1 % (15.0-51.0); MEAN CORPUSCULAR HEMOGLOBIN 31.2 pg (29.0-33.0); MEAN CORPUSCULAR HGB CONC 32.6 g/dl (32.0-37.0); MEAN CORPUSCULAR VOLUME 95.7 fl (82.0-101.0); MEAN PLATELET VOLUME 9.7 fl (7.4-10.4); MONOCYTE # 1.1 10^3/ul (0.3-0.9); MONOCYTES % 13.2 % (0.0-11.0); NEUTROPHIL # 6.5 10^3/ul (1.6-7.5); NEUTROPHILS % 76.1 % (39.0-77.0); PLATELET COUNT 258 10^3/UL (140-415); RED BLOOD COUNT 3.27 10^6/ul (4.20-5.40); RED CELL DISTRIBUTION WIDTH 13.1 % (11.5-14.5)
[2017-08-23 23:11] LABS: WHITE BLOOD COUNT 8.5 10^3/ul (4.8-10.8)
[2017-08-23 23:28] LABS: ALANINE AMINOTRANSFERASE 27 IU/L (13-69); ALBUMIN 3.5 g/dl (3.3-4.9); ALKALINE PHOSPHATASE 98 IU/L (42-121); ANION GAP 13 (8-16); ASPARTATE AMINO TRANSFERASE 39 IU/L (15-46); BILIRUBIN,INDIRECT 0.3 mg/dl (0-1.1); BILIRUBIN,TOTAL 0.3 mg/dl (0.2-1.3); BLOOD UREA NITROGEN 13 mg/dl (7-20); CALCIUM 8.8 mg/dl (8.4-10.2); CARBON DIOXIDE 28 mmol/L (21-31); CHLORIDE 97 mmol/L (97-110); CREATININE 1.06 mg/dl (0.44-1.00); GLUCOSE 127 mg/dl (70-220); POTASSIUM 4.4 mmol/L (3.5-5.1); SODIUM 134 mmol/L (135-144); TOTAL PROTEIN 6.4 g/dl (6.1-8.1)
[2017-08-23 23:30] LABS: INR 1.04; PARTIAL THROMBOPLASTIN TIME 34.5 Sec (25.0-35.0); PROTIME 13.7 Sec (11.9-14.9); PT RATIO 1.1
[2017-08-23 23:40] LABS: TROPONIN-I < 0.010 ng/ml (0.000-0.120)
[2017-08-23 23:51] LABS: ETHANOL < 10.0 mg/dl
[2017-08-24] MEDS: SODIUM CHLORIDE 0.9% 1L BAG IV* (00:13)
[2017-08-24] MEDS: ACETAMINOPHEN 325 MG TAB PO (00:30)
[2017-08-24 01:30] LABS: URINE BLOOD (Dip) POC Trace-lysed (NEGATIVE); URINE GLUCOSE (Dip) POC Negative (NEGATIVE); URINE KETONES (Dip) POC Negative (NEGATIVE); URINE LEUKOCYTE EST (Dip) POC Negative (NEGATIVE); URINE NITRITE (Dip) POC Negative (NEGATIVE); URINE TOTAL PROTEIN POC Trace (NEGATIVE)
[2017-08-24] MEDS: LEVOFLOXACIN 750MG/D5W (PMX) 150 ML IVPB (01:34)
[2017-08-24 01:55] LABS: ADD UMIC YES; UR ASCORBIC ACID NEGATIVE (NEGATIVE); UR BILIRUBIN (Dip) NEGATIVE (NEGATIVE); UR BLOOD (Dip) 1+ mg/dL (NEGATIVE); UR CLARITY CLEAR (CLEAR); UR COLOR YELLOW (YELLOW); UR GLUCOSE (Dip) NEGATIVE (NEGATIVE); UR KETONES (Dip) TRACE mg/dL (NEGATIVE); UR LEUKOCYTE ESTERASE (Dip) NEGATIVE Leu/ul (NEGATIVE); UR NITRITE (Dip) NEGATIVE (NEGATIVE); UR RBC 1 /HPF (0-5); UR SPECIFIC GRAVITY (Dip) 1.009 (1.003-1.030); UR TOTAL PROTEIN (Dip) NEGATIVE (NEGATIVE); UR UROBILINOGEN (Dip) 2+ mg/dL (NEGATIVE); UR WBC 0 /HPF (0-5)
[2017-08-24 02:08] LABS: LACTIC ACID 0.7 mmol/L (0.5-2.0)
[2017-08-24 02:19] LABS: AMPHETAMINE/METHAMPHETAMINE Negative (NEGATIVE); BARBITURATES Negative (NEGATIVE); BENZODIAZEPINES Negative (NEGATIVE); CANNABINOIDS Negative (NEGATIVE); COCAINE Negative (NEGATIVE); OPIATES Negative (NEGATIVE)
[2017-08-24 04:10] LABS: LACTIC ACID 0.6 mmol/L (0.5-2.0)
[2017-08-24] MEDS ORDERED: ACETAMINOPHEN 325 MG TAB PO (06:30)
[2017-08-24] MEDS: SOD CHLORIDE 0.9% 1,000 ML IV (07:44)
[2017-08-24 08:39] LABS: CHOL/HDL RATIO 5.3 RATIO; HDL CHOLESTEROL 19 mg/dl (35-98); LDL CHOLESTEROL,CALCULATED 64 mg/dl; TRIGLYCERIDES 91 mg/dl (0-149)
[2017-08-24 08:39] LABS: CHOLESTEROL 101 mg/dl (100-200)
[2017-08-24] MEDS: NAPROXEN 500 MG TAB PO (08:44)
[2017-08-24] MEDS: LEVOTHYROXINE 50 MCG TAB PO (08:44)
[2017-08-24] MEDS: BUPROPION (SR) 150 MG TAB PO (08:44)
[2017-08-24] MEDS: OXYBUTYNIN 5 MG TAB PO ×3 (08:44→20:57)
[2017-08-24] MEDS: GABAPENTIN 300 MG CAP PO ×3 (08:44→20:57)
[2017-08-24] MEDS: LORAZEPAM 0.5 MG TAB PO (08:44)
[2017-08-24] MEDS: CALCIUM CARBONATE (600 MG CA) TAB PO ×2 (08:45→20:56)
[2017-08-24 08:47] LABS: TROPONIN-I < 0.010 ng/ml (0.000-0.120)
[2017-08-24 14:00] LABS: TROPONIN-I < 0.010 ng/ml (0.000-0.120)
[2017-08-24] MEDS: ATORVASTATIN 20 MG TAB PO (20:56)
[2017-08-24] MEDS: ASPIRIN (EC) 81 MG TAB PO (20:57)
[2017-08-24] MEDS: DIVALPROEX (EC) 500 MG TAB PO (20:57)
[2017-08-24] MEDS ORDERED: traZODone 100 MG TAB PO (21:00)
[2017-08-25] MEDS: NAPROXEN 500 MG TAB PO ×2 (01:49→22:37)
[2017-08-25] MEDS ORDERED: VITAMIN A & D 5 GM OINT PACKET TOP (02:14)
[2017-08-25] MEDS: LORAZEPAM 2 MG INJ IV (02:28)
[2017-08-25] MEDS: SOD CHLORIDE 0.9% 1,000 ML IV (02:30)
[2017-08-25] MEDS: BUPROPION (SR) 150 MG TAB PO (06:25)
[2017-08-25] MEDS: LEVOTHYROXINE 50 MCG TAB PO (06:25)
[2017-08-25 06:37] LABS: ADD MAN DIFF? NO
[2017-08-25 06:45] LABS: ABNORMAL IP MESSAGE 1; BASOPHILS % 0.2 % (0.0-2.0); EOSINOPHILS # 0.1 10^3/ul (0.0-0.5); EOSINOPHILS % 0.7 % (0.0-7.0); HEMATOCRIT 28.2 % (37.0-47.0); LYMPHOCYTES # 1.1 10^3/ul (0.8-2.9); MEAN CORPUSCULAR HEMOGLOBIN 30.9 pg (29.0-33.0); MEAN CORPUSCULAR HGB CONC 31.9 g/dl (32.0-37.0); MEAN CORPUSCULAR VOLUME 96.9 fl (82.0-101.0); MEAN PLATELET VOLUME 9.5 fl (7.4-10.4); MONOCYTE # 1.5 10^3/ul (0.3-0.9); MONOCYTES % 17.5 % (0.0-11.0); NEUTROPHIL # 6.1 10^3/ul (1.6-7.5); NEUTROPHILS % 68.8 % (39.0-77.0); PLATELET COUNT 197 10^3/UL (140-415); RED BLOOD COUNT 2.91 10^6/ul (4.20-5.40); RED CELL DISTRIBUTION WIDTH 13.4 % (11.5-14.5)
[2017-08-25 06:45] LABS: WHITE BLOOD COUNT 8.8 10^3/ul (4.8-10.8)
[2017-08-25 07:02] LABS: POSITIVE DIFF @See below
[2017-08-25 07:17] LABS: ALANINE AMINOTRANSFERASE 26 IU/L (13-69); ALBUMIN 2.9 g/dl (3.3-4.9); ALKALINE PHOSPHATASE 130 IU/L (42-121); ANION GAP 12 (8-16); ASPARTATE AMINO TRANSFERASE 27 IU/L (15-46); BILIRUBIN,INDIRECT 0.1 mg/dl (0-1.1); BILIRUBIN,TOTAL 0.1 mg/dl (0.2-1.3); BLOOD UREA NITROGEN 4 mg/dl (7-20); CALCIUM 9.3 mg/dl (8.4-10.2); CARBON DIOXIDE 30 mmol/L (21-31); CHLORIDE 101 mmol/L (97-110); CREATININE 0.77 mg/dl (0.44-1.00); GLUCOSE 136 mg/dl (70-220); POTASSIUM 4.4 mmol/L (3.5-5.1); SODIUM 139 mmol/L (135-144); TOTAL PROTEIN 5.8 g/dl (6.1-8.1)
[2017-08-25] MEDS: CALCIUM CARBONATE (600 MG CA) TAB PO ×2 (08:30→21:04)
[2017-08-25] MEDS: LORAZEPAM 0.5 MG TAB PO (08:30)
[2017-08-25] MEDS: OXYBUTYNIN 5 MG TAB PO ×3 (08:31→20:57)
[2017-08-25] MEDS: GABAPENTIN 300 MG CAP PO ×3 (08:31→20:57)
[2017-08-25] MEDS: DIVALPROEX (EC) 500 MG TAB PO (20:57)
[2017-08-25] MEDS: ASPIRIN (EC) 81 MG TAB PO (20:57)
[2017-08-25] MEDS: ATORVASTATIN 20 MG TAB PO (20:57)
[2017-08-26] MEDS: BUPROPION (SR) 150 MG TAB PO (06:33)
[2017-08-26] MEDS: LEVOTHYROXINE 50 MCG TAB PO (06:33)
[2017-08-26] MEDS: GABAPENTIN 300 MG CAP PO ×3 (08:48→21:01)
[2017-08-26] MEDS: OXYBUTYNIN 5 MG TAB PO ×3 (08:48→21:01)
[2017-08-26] MEDS: CALCIUM CARBONATE (600 MG CA) TAB PO ×2 (08:49→21:01)
[2017-08-26] MEDS: LORAZEPAM 0.5 MG TAB PO (08:53)
[2017-08-26] MEDS: NAPROXEN 500 MG TAB PO (17:24)
[2017-08-26] MEDS: DIVALPROEX (EC) 500 MG TAB PO (21:00)
[2017-08-26] MEDS: ASPIRIN (EC) 81 MG TAB PO (21:00)
[2017-08-26] MEDS: ATORVASTATIN 20 MG TAB PO (21:00)
[2017-08-27] MEDS: morphine 2 MG INJ IV (06:47)
[2017-08-27] MEDS ORDERED: CEFAZOLIN 1 GM INJ (07:00)
[2017-08-27] MEDS: BUPROPION (SR) 150 MG TAB PO (07:25)
[2017-08-27] MEDS: LEVOTHYROXINE 50 MCG TAB PO (07:25)
[2017-08-27] MEDS: LORAZEPAM 0.5 MG TAB PO (08:38)
[2017-08-27] MEDS: GABAPENTIN 300 MG CAP PO ×3 (08:38→20:42)
[2017-08-27] MEDS: CALCIUM CARBONATE (600 MG CA) TAB PO ×2 (08:38→20:42)
[2017-08-27] MEDS: OXYBUTYNIN 5 MG TAB PO ×3 (08:38→20:41)
[2017-08-27] MEDS: DEXTROSE 5%-0.45% NACL 1,000 ML IV (09:42)
[2017-08-27] MEDS: LORAZEPAM 2 MG INJ IV (09:42)
[2017-08-27 13:00] LABS: RETICULOCYTE COUNT # 0.034 X10^6 (0.020-0.110); RETICULOCYTE COUNT % 1.1 % (0.5-1.5)
[2017-08-27 13:00] LABS: RETICULOCYTE RBC 3.07
[2017-08-27 15:16] LABS: FOLATE 18.5 ng/ml (2.8-20.0)
[2017-08-27] MEDS ORDERED: PROPOFOL 20 ML (16:10)
[2017-08-27] MEDS ORDERED: FENTAnyl 50 MCG/ML VIAL (16:10)
[2017-08-27] MEDS ORDERED: ROCURONIUM 50 MG INJ (16:10)
[2017-08-27] MEDS ORDERED: HYDROmorphONE 1 MG/5 ML IV SYRINGE IV ×3 (17:00)
[2017-08-27] MEDS ORDERED: EPHEDrine SULFATE 50 MG/5 ML SYG IV (17:00)
[2017-08-27] MEDS ORDERED: FENTAnyl 50 MCG/ML VIAL IV ×3 (17:00)
[2017-08-27] MEDS ORDERED: DIPHENHYDRAMINE 50 MG INJ IV (17:00)
[2017-08-27] MEDS ORDERED: SUGAMMADEX SODIUM 200 MG/2 ML VIAL IV (17:00)
[2017-08-27] MEDS ORDERED: METOCLOPRAMIDE 10 MG INJ (17:00)
[2017-08-27] MEDS ORDERED: DEXAMETHASONE 4 MG/ML 1 ML INJ (17:00)
[2017-08-27] MEDS ORDERED: METOCLOPRAMIDE 10 MG INJ IV (17:00)
[2017-08-27] MEDS ORDERED: ONDANSETRON 4 MG INJ (17:00)
[2017-08-27] MEDS ORDERED: ONDANSETRON 4 MG INJ IV (17:00)
[2017-08-27] MEDS: DIVALPROEX (EC) 500 MG TAB PO (20:42)
[2017-08-27] MEDS: ASPIRIN (EC) 81 MG TAB PO (20:42)
[2017-08-27] MEDS: ATORVASTATIN 20 MG TAB PO (20:51)
[2017-08-28] MEDS: LORAZEPAM 2 MG INJ IV ×3 (02:36→23:50)
[2017-08-28] MEDS: LORAZEPAM 0.5 MG TAB PO (08:20)
[2017-08-28] MEDS: GABAPENTIN 300 MG CAP PO ×3 (08:20→21:23)
[2017-08-28] MEDS: BUPROPION (SR) 150 MG TAB PO (08:21)
[2017-08-28] MEDS: OXYBUTYNIN 5 MG TAB PO ×3 (08:21→21:25)
[2017-08-28] MEDS: LEVOTHYROXINE 50 MCG TAB PO (08:21)
[2017-08-28] MEDS: CALCIUM CARBONATE (600 MG CA) TAB PO ×3 (08:25→21:23)
[2017-08-28 09:14] LABS: ADD MAN DIFF? NO
[2017-08-28 09:43] LABS: BASOPHIL # 0.1 10^3/ul (0.0-0.1); BASOPHILS % 0.4 % (0.0-2.0); HEMOGLOBIN 10.7 g/dl (12.0-16.0); LYMPHOCYTES # 1.3 10^3/ul (0.8-2.9); LYMPHOCYTES % 9.4 % (15.0-51.0); MEAN CORPUSCULAR HEMOGLOBIN 30.8 pg (29.0-33.0); MEAN CORPUSCULAR HGB CONC 31.5 g/dl (32.0-37.0); MEAN PLATELET VOLUME 9.8 fl (7.4-10.4); MONOCYTES % 7.1 % (0.0-11.0); NEUTROPHIL # 11.4 10^3/ul (1.6-7.5); NEUTROPHILS % 81.2 % (39.0-77.0); PLATELET COUNT 305 10^3/UL (140-415); RED BLOOD COUNT 3.47 10^6/ul (4.20-5.40); RED CELL DISTRIBUTION WIDTH 13.4 % (11.5-14.5)
[2017-08-28 09:49] LABS: ALANINE AMINOTRANSFERASE 59 IU/L (13-69); ALBUMIN 3.4 g/dl (3.3-4.9); ALBUMIN/GLOBULIN RATIO 1.03; ALKALINE PHOSPHATASE 357 IU/L (42-121); ANION GAP 13 (8-16); ASPARTATE AMINO TRANSFERASE 78 IU/L (15-46); BLOOD UREA NITROGEN 12 mg/dl (7-20); CALCIUM 9.7 mg/dl (8.4-10.2); CARBON DIOXIDE 30 mmol/L (21-31); CHLORIDE 99 mmol/L (97-110); CREATININE 0.86 mg/dl (0.44-1.00); GLUCOSE 158 mg/dl (70-220); POTASSIUM 4.8 mmol/L (3.5-5.1); SODIUM 137 mmol/L (135-144); TOTAL PROTEIN 6.7 g/dl (6.1-8.1)
[2017-08-28] MEDS: SOD CHLORIDE 0.9% 100 ML ×2 (17:37→17:49)
[2017-08-28] MEDS: IOHEXOL 300MG/ML 150 ML BTL ×2 (17:37→17:49)
[2017-08-28] MEDS: CIPROFLOXACIN 500 MG TAB PO (18:38)
[2017-08-28] MEDS: DIVALPROEX (EC) 500 MG TAB PO (21:21)
[2017-08-28] MEDS: ATORVASTATIN 20 MG TAB PO (21:22)
[2017-08-28] MEDS: LUBIPROSTONE 24 MCG CAP PO (21:23)
[2017-08-28] MEDS: ASPIRIN (EC) 81 MG TAB PO (21:25)
[2017-08-29] MEDS: LORAZEPAM 2 MG INJ IV ×2 (02:56→14:03)
[2017-08-29] MEDS: CIPROFLOXACIN 500 MG TAB PO (06:14)
[2017-08-29] MEDS: LEVOTHYROXINE 50 MCG TAB PO (06:14)
[2017-08-29] MEDS: LEVOFLOXACIN 500 MG TAB PO (06:14)
[2017-08-29] MEDS: ALENDRONATE 70 MG TAB PO (06:21)
[2017-08-29] MEDS: BUPROPION (SR) 150 MG TAB PO (09:00)
[2017-08-29] MEDS: OXYBUTYNIN 5 MG TAB PO ×3 (09:01→21:04)
[2017-08-29] MEDS: LUBIPROSTONE 24 MCG CAP PO ×2 (09:01→21:17)
[2017-08-29] MEDS: LORAZEPAM 0.5 MG TAB PO (09:01)
[2017-08-29] MEDS: CALCIUM CARBONATE (600 MG CA) TAB PO ×2 (09:01→21:17)
[2017-08-29] MEDS: GABAPENTIN 300 MG CAP PO ×3 (09:01→21:18)
[2017-08-29] MEDS: SOD CHLORIDE 0.9% 500 ML (10:20)
[2017-08-29] MEDS: MIDAZOLAM 1 MG/ML 2 ML INJ (10:46)
[2017-08-29] MEDS: FENTAnyl 50 MCG/ML VIAL (10:48)
[2017-08-29] MEDS: LIDOCAINE 1% (MDV) 10 ML INJ ×2 (11:10)
[2017-08-29 14:37] LABS: ADD MAN DIFF? NO
[2017-08-29 14:39] LABS: WHITE BLOOD COUNT 13.9 10^3/ul (4.8-10.8)
[2017-08-29 14:39] LABS: ABNORMAL IP MESSAGE 1; BASOPHIL # 0.1 10^3/ul (0.0-0.1); BASOPHILS % 0.4 % (0.0-2.0); EOSINOPHILS % 0.2 % (0.0-7.0); HEMATOCRIT 28.8 % (37.0-47.0); HEMOGLOBIN 9.6 g/dl (12.0-16.0); LYMPHOCYTES # 1.7 10^3/ul (0.8-2.9); LYMPHOCYTES % 11.9 % (15.0-51.0); MEAN CORPUSCULAR HEMOGLOBIN 31.8 pg (29.0-33.0); MEAN CORPUSCULAR HGB CONC 33.3 g/dl (32.0-37.0); MEAN CORPUSCULAR VOLUME 95.4 fl (82.0-101.0); MEAN PLATELET VOLUME 9.7 fl (7.4-10.4); MONOCYTE # 2.3 10^3/ul (0.3-0.9); MONOCYTES % 16.2 % (0.0-11.0); NEUTROPHIL # 9.5 10^3/ul (1.6-7.5); NEUTROPHILS % 68.9 % (39.0-77.0); NUCLEATED RED BLOOD CELLS% 0.1 /100WBC (0.0-0.0); PLATELET COUNT 220 10^3/UL (140-415); RED BLOOD COUNT 3.02 10^6/ul (4.20-5.40); RED CELL DISTRIBUTION WIDTH 13.9 % (11.5-14.5)
[2017-08-29 15:05] LABS: ALANINE AMINOTRANSFERASE 46 IU/L (13-69); ALBUMIN 2.9 g/dl (3.3-4.9); ALBUMIN/GLOBULIN RATIO 0.93; ALKALINE PHOSPHATASE 246 IU/L (42-121); ANION GAP 12 (8-16); ASPARTATE AMINO TRANSFERASE 30 IU/L (15-46); BILIRUBIN,INDIRECT 0.2 mg/dl (0-1.1); BILIRUBIN,TOTAL 0.2 mg/dl (0.2-1.3); BLOOD UREA NITROGEN 12 mg/dl (7-20); CALCIUM 9.2 mg/dl (8.4-10.2); CARBON DIOXIDE 28 mmol/L (21-31); CHLORIDE 98 mmol/L (97-110); CREATININE 1.29 mg/dl (0.44-1.00); GLUCOSE 97 mg/dl (70-220); POTASSIUM 4.2 mmol/L (3.5-5.1); SODIUM 134 mmol/L (135-144)
[2017-08-29] MEDS: morphine LIQ (10 MG/5 ML) CUP PO (17:37)
[2017-08-29] MEDS: ATORVASTATIN 20 MG TAB PO (21:03)
[2017-08-29] MEDS: DIVALPROEX (EC) 500 MG TAB PO (21:16)
[2017-08-29] MEDS: ASPIRIN (EC) 81 MG TAB PO (21:16)
[2017-08-29] MEDS: SOD CHLORIDE 0.45% 1,000 ML IV (21:20)
[2017-08-30] MEDS: BUPROPION (SR) 150 MG TAB PO (06:30)
[2017-08-30] MEDS: LEVOTHYROXINE 50 MCG TAB PO (06:31)
[2017-08-30] MEDS: SOD CHLORIDE 0.45% 1,000 ML IV ×2 (06:31→20:39)
[2017-08-30] MEDS: LEVOFLOXACIN 500 MG TAB PO (06:31)
[2017-08-30 07:19] LABS: ADD MAN DIFF? NO
[2017-08-30 07:29] LABS: WHITE BLOOD COUNT 9.2 10^3/ul (4.8-10.8)
[2017-08-30 07:29] LABS: ABNORMAL IP MESSAGE 1; BASOPHIL # 0.1 10^3/ul (0.0-0.1); BASOPHILS % 0.8 % (0.0-2.0); EOSINOPHILS # 0.1 10^3/ul (0.0-0.5); EOSINOPHILS % 0.9 % (0.0-7.0); HEMATOCRIT 31.8 % (37.0-47.0); HEMOGLOBIN 10.1 g/dl (12.0-16.0); LYMPHOCYTES # 1.7 10^3/ul (0.8-2.9); LYMPHOCYTES % 18.7 % (15.0-51.0); MEAN CORPUSCULAR HEMOGLOBIN 30.9 pg (29.0-33.0); MEAN CORPUSCULAR HGB CONC 31.8 g/dl (32.0-37.0); MEAN CORPUSCULAR VOLUME 97.2 fl (82.0-101.0); MEAN PLATELET VOLUME 9.6 fl (7.4-10.4); MONOCYTE # 1.1 10^3/ul (0.3-0.9); MONOCYTES % 12.1 % (0.0-11.0); NEUTROPHIL # 5.7 10^3/ul (1.6-7.5); NEUTROPHILS % 61.5 % (39.0-77.0); PLATELET COUNT 233 10^3/UL (140-415); RED BLOOD COUNT 3.27 10^6/ul (4.20-5.40); RED CELL DISTRIBUTION WIDTH 13.9 % (11.5-14.5)
[2017-08-30 08:00] LABS: ALANINE AMINOTRANSFERASE 38 IU/L (13-69); ALBUMIN/GLOBULIN RATIO 0.96; ALKALINE PHOSPHATASE 223 IU/L (42-121); ANION GAP 13 (8-16); ASPARTATE AMINO TRANSFERASE 30 IU/L (15-46); BILIRUBIN,INDIRECT 0.3 mg/dl (0-1.1); BILIRUBIN,TOTAL 0.3 mg/dl (0.2-1.3); BLOOD UREA NITROGEN 11 mg/dl (7-20); CALCIUM 9.7 mg/dl (8.4-10.2); CARBON DIOXIDE 29 mmol/L (21-31); CHLORIDE 99 mmol/L (97-110); CREATININE 1.19 mg/dl (0.44-1.00); GLUCOSE 152 mg/dl (70-220); POTASSIUM 4.2 mmol/L (3.5-5.1); SODIUM 137 mmol/L (135-144); TOTAL PROTEIN 6.1 g/dl (6.1-8.1)
[2017-08-30] MEDS: LORAZEPAM 0.5 MG TAB PO (08:45)
[2017-08-30] MEDS: LUBIPROSTONE 24 MCG CAP PO ×2 (08:45→20:54)
[2017-08-30] MEDS: CALCIUM CARBONATE (600 MG CA) TAB PO ×2 (08:45→20:54)
[2017-08-30] MEDS: OXYBUTYNIN 5 MG TAB PO ×3 (08:45→20:54)
[2017-08-30] MEDS: GABAPENTIN 300 MG CAP PO ×3 (08:45→20:54)
[2017-08-30] MEDS: LORAZEPAM 2 MG INJ IV (11:04)
[2017-08-30] MEDS: ATORVASTATIN 20 MG TAB PO (20:54)
[2017-08-30] MEDS: DIVALPROEX (EC) 500 MG TAB PO (20:54)
[2017-08-30] MEDS: ASPIRIN (EC) 81 MG TAB PO (20:54)
[2017-08-31] MEDS: LEVOFLOXACIN 500 MG TAB PO (05:37)
[2017-08-31] MEDS: LORAZEPAM 2 MG INJ IV ×2 (06:13→17:33)
[2017-08-31 06:52] LABS: ADD MAN DIFF? NO
[2017-08-31 06:53] LABS: ABNORMAL IP MESSAGE 1; BASOPHIL # 0.1 10^3/ul (0.0-0.1); EOSINOPHILS # 0.1 10^3/ul (0.0-0.5); EOSINOPHILS % 1.4 % (0.0-7.0); HEMATOCRIT 33.5 % (37.0-47.0); HEMOGLOBIN 10.3 g/dl (12.0-16.0); LYMPHOCYTES # 2.3 10^3/ul (0.8-2.9); LYMPHOCYTES % 25.9 % (15.0-51.0); MEAN CORPUSCULAR HEMOGLOBIN 30.1 pg (29.0-33.0); MEAN CORPUSCULAR HGB CONC 30.7 g/dl (32.0-37.0); MEAN PLATELET VOLUME 9.4 fl (7.4-10.4); MONOCYTE # 1.1 10^3/ul (0.3-0.9); MONOCYTES % 12.3 % (0.0-11.0); NEUTROPHIL # 4.5 10^3/ul (1.6-7.5); NEUTROPHILS % 50.5 % (39.0-77.0); NUCLEATED RED BLOOD CELLS% 0.3 /100WBC (0.0-0.0); PLATELET COUNT 251 10^3/UL (140-415); RED BLOOD COUNT 3.42 10^6/ul (4.20-5.40); RED CELL DISTRIBUTION WIDTH 14.1 % (11.5-14.5)
[2017-08-31 06:53] LABS: WHITE BLOOD COUNT 8.9 10^3/ul (4.8-10.8)
[2017-08-31 07:30] LABS: ALANINE AMINOTRANSFERASE 27 IU/L (13-69); ALBUMIN 3.2 g/dl (3.3-4.9); ALBUMIN/GLOBULIN RATIO 1.03; ALKALINE PHOSPHATASE 201 IU/L (42-121); ANION GAP 11 (8-16); ASPARTATE AMINO TRANSFERASE 19 IU/L (15-46); BLOOD UREA NITROGEN 6 mg/dl (7-20); CALCIUM 9.6 mg/dl (8.4-10.2); CARBON DIOXIDE 32 mmol/L (21-31); CHLORIDE 103 mmol/L (97-110); CREATININE 0.96 mg/dl (0.44-1.00); GLUCOSE 115 mg/dl (70-220); POTASSIUM 4.3 mmol/L (3.5-5.1); SODIUM 142 mmol/L (135-144); TOTAL PROTEIN 6.3 g/dl (6.1-8.1)
[2017-08-31] MEDS: GABAPENTIN 300 MG CAP PO ×3 (08:17→20:34)
[2017-08-31] MEDS: LEVOTHYROXINE 50 MCG TAB PO (08:18)
[2017-08-31] MEDS: LORAZEPAM 0.5 MG TAB PO (08:18)
[2017-08-31] MEDS: CALCIUM CARBONATE (600 MG CA) TAB PO ×2 (08:18→20:35)
[2017-08-31] MEDS: BUPROPION (SR) 150 MG TAB PO (08:18)
[2017-08-31] MEDS: NAPROXEN 500 MG TAB PO (08:18)
[2017-08-31] MEDS: LUBIPROSTONE 24 MCG CAP PO ×2 (08:18→20:34)
[2017-08-31] MEDS: OXYBUTYNIN 5 MG TAB PO ×3 (08:18→20:34)
[2017-08-31] MEDS: SOD CHLORIDE 0.45% 1,000 ML IV (09:30)
[2017-08-31] MEDS: NEOMYC/POLYMYX/BACIT 30 GM OINT TOP ×2 (12:50→20:35)
[2017-08-31] MEDS: ERTAPENEM SODIUM 1 GM in SOD CHLORIDE 0.9% 100 ML IVPB (18:24)
[2017-08-31] MEDS: ASPIRIN (EC) 81 MG TAB PO (20:35)
[2017-08-31] MEDS: ATORVASTATIN 20 MG TAB PO (20:35)
[2017-08-31] MEDS: DIVALPROEX (EC) 500 MG TAB PO (20:35)
[2017-09-01] MEDS: PANTOPRAZOLE (EC) 40 MG TAB PO (06:00)
[2017-09-01 07:24] LABS: ADD MAN DIFF? NO
[2017-09-01 07:29] LABS: WHITE BLOOD COUNT 7.4 10^3/ul (4.8-10.8)
[2017-09-01 07:29] LABS: ABNORMAL IP MESSAGE 1; BASOPHILS % 0.3 % (0.0-2.0); EOSINOPHILS # 0.2 10^3/ul (0.0-0.5); EOSINOPHILS % 2.6 % (0.0-7.0); HEMATOCRIT 33.5 % (37.0-47.0); HEMOGLOBIN 10.4 g/dl (12.0-16.0); LYMPHOCYTES % 26.3 % (15.0-51.0); MEAN CORPUSCULAR HEMOGLOBIN 30.1 pg (29.0-33.0); MEAN CORPUSCULAR VOLUME 97.1 fl (82.0-101.0); MEAN PLATELET VOLUME 9.4 fl (7.4-10.4); MONOCYTE # 0.9 10^3/ul (0.3-0.9); MONOCYTES % 11.6 % (0.0-11.0); NEUTROPHIL # 3.8 10^3/ul (1.6-7.5); NUCLEATED RED BLOOD CELLS% 0.4 /100WBC (0.0-0.0); PLATELET COUNT 252 10^3/UL (140-415); RED BLOOD COUNT 3.45 10^6/ul (4.20-5.40); RED CELL DISTRIBUTION WIDTH 13.7 % (11.5-14.5)
[2017-09-01 07:33] LABS: POSITIVE DIFF @See below
[2017-09-01 07:53] LABS: ANION GAP 11 (8-16); BLOOD UREA NITROGEN 5 mg/dl (7-20); CALCIUM 9.6 mg/dl (8.4-10.2); CARBON DIOXIDE 30 mmol/L (21-31); CHLORIDE 104 mmol/L (97-110); CREATININE 0.97 mg/dl (0.44-1.00); GLUCOSE 108 mg/dl (70-220); POTASSIUM 4.3 mmol/L (3.5-5.1); SODIUM 141 mmol/L (135-144)
[2017-09-01] MEDS: NEOMYC/POLYMYX/BACIT 30 GM OINT TOP ×3 (09:00→21:40)
[2017-09-01] MEDS: LUBIPROSTONE 24 MCG CAP PO ×2 (09:03→21:38)
[2017-09-01] MEDS: CALCIUM CARBONATE (600 MG CA) TAB PO ×2 (09:04→21:39)
[2017-09-01] MEDS: OXYBUTYNIN 5 MG TAB PO ×3 (09:04→21:39)
[2017-09-01] MEDS: LORAZEPAM 0.5 MG TAB PO (09:04)
[2017-09-01] MEDS: LEVOTHYROXINE 50 MCG TAB PO (09:04)
[2017-09-01] MEDS: GABAPENTIN 300 MG CAP PO ×3 (09:04→21:39)
[2017-09-01] MEDS: BUPROPION (SR) 150 MG TAB PO (09:04)
[2017-09-01] MEDS: morphine LIQ (10 MG/5 ML) CUP PO ×2 (13:13→19:00)
[2017-09-01] MEDS: ERTAPENEM SODIUM 1 GM in SOD CHLORIDE 0.9% 100 ML IVPB (17:20)
[2017-09-01] MEDS: DIVALPROEX (EC) 500 MG TAB PO (21:38)
[2017-09-01] MEDS: ATORVASTATIN 20 MG TAB PO (21:39)
[2017-09-01] MEDS: ASPIRIN (EC) 81 MG TAB PO (21:39)
[2017-09-01] MEDS: LORAZEPAM 2 MG INJ IV (21:41)
[2017-09-02] MEDS: LORAZEPAM 2 MG INJ IV ×2 (06:04→19:29)
[2017-09-02] MEDS: PANTOPRAZOLE (EC) 40 MG TAB PO (06:04)
[2017-09-02] MEDS: CALCIUM CARBONATE (600 MG CA) TAB PO ×2 (08:36→21:00)
[2017-09-02] MEDS: LUBIPROSTONE 24 MCG CAP PO ×2 (08:36→21:36)
[2017-09-02] MEDS: LEVOTHYROXINE 50 MCG TAB PO (08:36)
[2017-09-02] MEDS: BUPROPION (SR) 150 MG TAB PO (08:36)
[2017-09-02] MEDS: OXYBUTYNIN 5 MG TAB PO ×3 (08:36→21:36)
[2017-09-02] MEDS: LORAZEPAM 0.5 MG TAB PO (08:37)
[2017-09-02] MEDS: GABAPENTIN 300 MG CAP PO ×3 (08:37→21:36)
[2017-09-02] MEDS: NEOMYC/POLYMYX/BACIT 30 GM OINT TOP ×3 (12:36→21:37)
[2017-09-02] MEDS: ERTAPENEM SODIUM 1 GM in SOD CHLORIDE 0.9% 100 ML IVPB (18:13)
[2017-09-02] MEDS: ASPIRIN (EC) 81 MG TAB PO (21:36)
[2017-09-02] MEDS: ATORVASTATIN 20 MG TAB PO (21:36)
[2017-09-02] MEDS: DIVALPROEX (EC) 500 MG TAB PO (21:36)
[2017-09-02] MEDS: morphine LIQ (10 MG/5 ML) CUP PO (21:37)
[2017-09-03] MEDS: PANTOPRAZOLE (EC) 40 MG TAB PO (05:55)
[2017-09-03] MEDS: GABAPENTIN 300 MG CAP PO ×3 (08:46→21:23)
[2017-09-03] MEDS: LUBIPROSTONE 24 MCG CAP PO ×2 (08:46→21:23)
[2017-09-03] MEDS: LEVOTHYROXINE 50 MCG TAB PO (08:46)
[2017-09-03] MEDS: NEOMYC/POLYMYX/BACIT 30 GM OINT TOP ×3 (08:47→21:00)
[2017-09-03] MEDS: OXYBUTYNIN 5 MG TAB PO ×3 (08:47→21:29)
[2017-09-03] MEDS: BUPROPION (SR) 150 MG TAB PO (08:47)
[2017-09-03] MEDS: LORAZEPAM 0.5 MG TAB PO (08:49)
[2017-09-03] MEDS: CALCIUM CARBONATE (600 MG CA) TAB PO ×2 (08:50→21:00)
[2017-09-03] MEDS: morphine LIQ (10 MG/5 ML) CUP PO ×2 (10:35→20:35)
[2017-09-03] MEDS: LORAZEPAM 2 MG INJ IV ×2 (15:00→21:21)
[2017-09-03] MEDS: ERTAPENEM SODIUM 1 GM in SOD CHLORIDE 0.9% 100 ML IVPB (16:33)
[2017-09-03] MEDS: ATORVASTATIN 20 MG TAB PO (21:22)
[2017-09-03] MEDS: DIVALPROEX (EC) 500 MG TAB PO (21:23)
[2017-09-03] MEDS: ASPIRIN (EC) 81 MG TAB PO (21:23)
[2017-09-04] MEDS: morphine LIQ (10 MG/5 ML) CUP PO ×2 (02:46→18:46)
[2017-09-04] MEDS: LORAZEPAM 2 MG INJ IV (04:24)
[2017-09-04 06:30] LABS: MAGNESIUM 1.8 mg/dl (1.7-2.5)
[2017-09-04 06:30] LABS: PHOSPHORUS 4.4 mg/dl (2.5-4.9)
[2017-09-04] MEDS: BUPROPION (SR) 150 MG TAB PO (06:35)
[2017-09-04] MEDS: PANTOPRAZOLE (EC) 40 MG TAB PO (06:35)
[2017-09-04] MEDS: LEVOTHYROXINE 50 MCG TAB PO (06:35)
[2017-09-04 06:43] LABS: ALANINE AMINOTRANSFERASE 27 IU/L (13-69); ALBUMIN/GLOBULIN RATIO 0.93; ALKALINE PHOSPHATASE 116 IU/L (42-121); ANION GAP 15 (8-16); ASPARTATE AMINO TRANSFERASE 19 IU/L (15-46); BILIRUBIN,INDIRECT 0.1 mg/dl (0-1.1); BILIRUBIN,TOTAL 0.1 mg/dl (0.2-1.3); BLOOD UREA NITROGEN 14 mg/dl (7-20); CALCIUM 8.8 mg/dl (8.4-10.2); CARBON DIOXIDE 29 mmol/L (21-31); CHLORIDE 102 mmol/L (97-110); CREATININE 1.16 mg/dl (0.44-1.00); GLUCOSE 113 mg/dl (70-220); POTASSIUM 4.4 mmol/L (3.5-5.1); SODIUM 142 mmol/L (135-144); TOTAL PROTEIN 6.2 g/dl (6.1-8.1)
[2017-09-04] MEDS: LUBIPROSTONE 24 MCG CAP PO ×2 (08:45→21:34)
[2017-09-04] MEDS: LORAZEPAM 0.5 MG TAB PO (08:46)
[2017-09-04] MEDS: OXYBUTYNIN 5 MG TAB PO ×3 (08:46→21:34)
[2017-09-04] MEDS: GABAPENTIN 300 MG CAP PO ×3 (08:46→21:33)
[2017-09-04] MEDS: CALCIUM CARBONATE (600 MG CA) TAB PO ×2 (08:47→21:39)
[2017-09-04] MEDS: NEOMYC/POLYMYX/BACIT 30 GM OINT TOP ×3 (08:48→21:41)
[2017-09-04] MEDS: ASPIRIN (EC) 81 MG TAB PO (21:33)
[2017-09-04] MEDS: ATORVASTATIN 20 MG TAB PO (21:36)
[2017-09-04] MEDS: metroNIDAZOLE 500 MG TAB PO (21:36)
[2017-09-04] MEDS: DIVALPROEX (EC) 500 MG TAB PO (21:40)
[2017-09-05] MEDS: morphine LIQ (10 MG/5 ML) CUP PO ×2 (01:59→21:41)
[2017-09-05] MEDS: ALENDRONATE 70 MG TAB PO (06:30)
[2017-09-05 06:40] LABS: ADD MAN DIFF? NO
[2017-09-05] MEDS: metroNIDAZOLE 500 MG TAB PO ×3 (06:41→21:50)
[2017-09-05 06:42] LABS: BASOPHIL # 0.1 10^3/ul (0.0-0.1); BASOPHILS % 0.6 % (0.0-2.0); EOSINOPHILS # 0.2 10^3/ul (0.0-0.5); EOSINOPHILS % 2.4 % (0.0-7.0); HEMATOCRIT 31.4 % (37.0-47.0); HEMOGLOBIN 9.7 g/dl (12.0-16.0); LYMPHOCYTES % 25.5 % (15.0-51.0); MEAN CORPUSCULAR HGB CONC 30.9 g/dl (32.0-37.0); MEAN CORPUSCULAR VOLUME 97.2 fl (82.0-101.0); MONOCYTE # 0.8 10^3/ul (0.3-0.9); MONOCYTES % 10.3 % (0.0-11.0); NEUTROPHIL # 4.8 10^3/ul (1.6-7.5); NEUTROPHILS % 59.9 % (39.0-77.0); PLATELET COUNT 224 10^3/UL (140-415); RED BLOOD COUNT 3.23 10^6/ul (4.20-5.40); RED CELL DISTRIBUTION WIDTH 14.1 % (11.5-14.5)
[2017-09-05] MEDS: LEVOFLOXACIN 250 MG TAB PO (06:42)
[2017-09-05] MEDS: PANTOPRAZOLE (EC) 40 MG TAB PO (06:42)
[2017-09-05 07:22] LABS: ANION GAP 13 (8-16); BLOOD UREA NITROGEN 9 mg/dl (7-20); CALCIUM 8.9 mg/dl (8.4-10.2); CARBON DIOXIDE 27 mmol/L (21-31); CHLORIDE 106 mmol/L (97-110); CREATININE 0.92 mg/dl (0.44-1.00); GLUCOSE 93 mg/dl (70-220); MAGNESIUM 1.9 mg/dl (1.7-2.5); POTASSIUM 4.2 mmol/L (3.5-5.1); SODIUM 142 mmol/L (135-144)
[2017-09-05 07:22] LABS: PHOSPHORUS 4.4 mg/dl (2.5-4.9)
[2017-09-05] MEDS: LORAZEPAM 0.5 MG TAB PO (08:33)
[2017-09-05] MEDS: OXYBUTYNIN 5 MG TAB PO ×3 (08:33→21:43)
[2017-09-05] MEDS: LUBIPROSTONE 24 MCG CAP PO ×2 (08:33→21:43)
[2017-09-05] MEDS: CALCIUM CARBONATE (600 MG CA) TAB PO ×2 (08:33→21:44)
[2017-09-05] MEDS: LEVOTHYROXINE 50 MCG TAB PO (08:33)
[2017-09-05] MEDS: GABAPENTIN 300 MG CAP PO ×3 (08:33→21:43)
[2017-09-05] MEDS: NEOMYC/POLYMYX/BACIT 30 GM OINT TOP ×3 (08:34→21:00)
[2017-09-05] MEDS: BUPROPION (SR) 150 MG TAB PO (08:35)
[2017-09-05 13:27] LABS: ADD UMIC YES; UR ASCORBIC ACID NEGATIVE (NEGATIVE); UR BILIRUBIN (Dip) NEGATIVE (NEGATIVE); UR BLOOD (Dip) 1+ mg/dL (NEGATIVE); UR CLARITY CLEAR (CLEAR); UR COLOR YELLOW (YELLOW); UR GLUCOSE (Dip) NEGATIVE (NEGATIVE); UR KETONES (Dip) NEGATIVE (NEGATIVE); UR LEUKOCYTE ESTERASE (Dip) 2+ Leu/ul (NEGATIVE); UR NITRITE (Dip) NEGATIVE (NEGATIVE); UR RBC 1 /HPF (0-5); UR SQUAMOUS EPITHELIAL CELL FEW /HPF (FEW); UR TOTAL PROTEIN (Dip) NEGATIVE (NEGATIVE); UR UROBILINOGEN (Dip) NEGATIVE (NEGATIVE); UR WBC 2 /HPF (0-5)
[2017-09-05] MEDS: ATORVASTATIN 20 MG TAB PO (21:43)
[2017-09-05] MEDS: DIVALPROEX (EC) 500 MG TAB PO (21:43)
[2017-09-05] MEDS: ASPIRIN (EC) 81 MG TAB PO (21:44)
[2017-09-06] MEDS: LORAZEPAM 2 MG INJ IV (01:26)
[2017-09-06] MEDS: morphine LIQ (10 MG/5 ML) CUP PO (01:35)
[2017-09-06] MEDS: ALENDRONATE 70 MG TAB PO ×2 (06:30→09:05)
[2017-09-06] MEDS: metroNIDAZOLE 500 MG TAB PO ×3 (06:31→21:00)
[2017-09-06] MEDS: PANTOPRAZOLE (EC) 40 MG TAB PO (06:31)
[2017-09-06] MEDS: LEVOFLOXACIN 250 MG TAB PO (06:31)
[2017-09-06] MEDS: LUBIPROSTONE 24 MCG CAP PO ×2 (09:04→20:52)
[2017-09-06] MEDS: GABAPENTIN 300 MG CAP PO ×3 (09:04→20:52)
[2017-09-06] MEDS: BUPROPION (SR) 150 MG TAB PO (09:04)
[2017-09-06] MEDS: OXYBUTYNIN 5 MG TAB PO ×3 (09:04→20:53)
[2017-09-06] MEDS: LEVOTHYROXINE 50 MCG TAB PO (09:04)
[2017-09-06] MEDS: CALCIUM CARBONATE (600 MG CA) TAB PO ×2 (09:04→20:56)
[2017-09-06] MEDS: NEOMYC/POLYMYX/BACIT 30 GM OINT TOP ×3 (09:05→20:52)
[2017-09-06] MEDS: LORAZEPAM 0.5 MG TAB PO (09:05)
[2017-09-06] MEDS: DIVALPROEX (EC) 500 MG TAB PO (20:52)
[2017-09-06] MEDS: ATORVASTATIN 20 MG TAB PO (20:53)
[2017-09-06] MEDS: ASPIRIN (EC) 81 MG TAB PO (20:53)
[2017-09-07] MEDS: morphine LIQ (10 MG/5 ML) CUP PO (01:06)
[2017-09-07] MEDS: LEVOFLOXACIN 250 MG TAB PO (05:48)
[2017-09-07] MEDS: PANTOPRAZOLE (EC) 40 MG TAB PO (05:48)
[2017-09-07] MEDS: metroNIDAZOLE 500 MG TAB PO ×2 (05:48→15:47)
[2017-09-07] MEDS: BUPROPION (SR) 150 MG TAB PO (08:30)
[2017-09-07] MEDS: LEVOTHYROXINE 50 MCG TAB PO (08:30)
[2017-09-07] MEDS: GABAPENTIN 300 MG CAP PO ×2 (08:31→15:47)
[2017-09-07] MEDS: LUBIPROSTONE 24 MCG CAP PO (08:31)
[2017-09-07] MEDS: CALCIUM CARBONATE (600 MG CA) TAB PO (08:31)
[2017-09-07] MEDS: LORAZEPAM 0.5 MG TAB PO (08:31)
[2017-09-07] MEDS: OXYBUTYNIN 5 MG TAB PO ×2 (08:31→15:47)
[2017-09-07] MEDS: NEOMYC/POLYMYX/BACIT 30 GM OINT TOP ×2 (08:44→15:49)
== END 2017-09-07 19:58 | disposition home health service (06) | DRG 312 ==
LOC: TEL 08-25 05:04 → PP2 09-03 12:36 → TEL 08-25 05:06 → E/R 22:43 → TEL 08-24 05:15 → MS3 08-24 04:53 → TEL 08-24 22:07
PROC: 0FC98ZZ Extirpation of Matter from Common Bile Duct, Via Natural or Artificial Opening Endoscopic (ICD-10-PCS; principal; 2017-08-27 16:15)
PROC: 0FPB8DZ Removal of Intraluminal Device from Hepatobiliary Duct, Via Natural or Artificial Opening Endoscopic (ICD-10-PCS; 2017-08-27 16:15)
PROC: 0WPFX0Z Removal of Drainage Device from Abdominal Wall, External Approach (ICD-10-PCS; 2017-08-27 16:15)
DX: R55 Syncope and collapse (principal); N17.9 Acute kidney failure, unspecified; F32.2 Major depressive disorder, single episode, severe without psychotic features; K91.86 Retained cholelithiasis following cholecystectomy; N39.3 Stress incontinence (female) (male); E78.5 Hyperlipidemia, unspecified; E03.9 Hypothyroidism, unspecified; F41.9 Anxiety disorder, unspecified; K59.00 Constipation, unspecified; D35.01 Benign neoplasm of right adrenal gland; N32.81 Overactive bladder; E66.9 Obesity, unspecified; Z68.34 Body mass index [BMI] 34.0-34.9, adult; F43.10 Post-traumatic stress disorder, unspecified; K57.90 Diverticulosis of intestine, part unspecified, without perforation or abscess without bleeding; I70.0 Atherosclerosis of aorta; I70.209 Unspecified atherosclerosis of native arteries of extremities, unspecified extremity; Y83.8 Other surgical procedures as the cause of abnormal reaction of the patient, or of later complication, without mention of misadventure at the time of the procedure
CPT/HCPCS: 36415; 36589; 70450; 71045; 72125; 74176; 74177; 74330; 75989; 77012; 80048; 80053; 80061; 80307; 81001; 81003; 82607; 82728; 82746; 83605; 83735; 84100; 84443; 84484; 85025; 85045; 85610; 85730; 87040; 87070; 87075; 87086; 93005; 93306; 93880; 96365; 96366; 97110; 97116; 97161; 97530; 99285-25

== ENCOUNTER 2017-10-03 22:43 | Inpatient (IN) | payer OTHER ==
[2017-10-03] MEDS ORDERED: ACETAMINOPHEN 325 MG TAB PO (23:30)
[2017-10-03] MEDS ORDERED: ONDANSETRON 4 MG INJ IV (23:30)
[2017-10-04] MEDS: SOD CHLORIDE 0.9% 1,000 ML IV (03:22)
[2017-10-04] MEDS: PANTOPRAZOLE 40 MG INJ IV (06:10)
[2017-10-04] MEDS: ASPIRIN 81 MG TAB PO (08:02)
[2017-10-04 08:07] LABS: CHOL/HDL RATIO 3.9 RATIO; HDL CHOLESTEROL 36 mg/dl (35-98); LDL CHOLESTEROL,CALCULATED 82 mg/dl; TRIGLYCERIDES 118 mg/dl (0-149)
[2017-10-04 08:07] LABS: CHOLESTEROL 142 mg/dl (100-200)
[2017-10-04] MEDS ORDERED: ACETAMINOPHEN 325 MG TAB PO (16:30)
[2017-10-04] MEDS ORDERED: ONDANSETRON 4 MG INJ IV (16:30)
[2017-10-04 17:11] LABS: CREATINE KINASE 31 IU/L (23-200)
[2017-10-04 17:18] LABS: D-DIMER 262.82 ng/ml (<460)
[2017-10-04 17:23] LABS: CK INDEX 1.4; TROPONIN-I < 0.010 ng/ml (0.000-0.120)
[2017-10-04] MEDS: ENOXAPARIN 40 MG/0.4 ML SYG SC (17:35)
[2017-10-04 17:43] LABS: CK-MB 0.44 ng/ml (0.0-2.4)
[2017-10-04] MEDS: morphine 2 MG INJ IV (19:05)
[2017-10-04] MEDS: OXYBUTYNIN 5 MG TAB PO (21:14)
[2017-10-04 22:49] LABS: CREATINE KINASE 37 IU/L (23-200)
[2017-10-04 23:02] LABS: CK INDEX 1.4; CK-MB 0.51 ng/ml (0.0-2.4); TROPONIN-I < 0.010 ng/ml (0.000-0.120)
[2017-10-05] MEDS: PANTOPRAZOLE 40 MG INJ IV (06:09)
[2017-10-05 07:08] LABS: TROPONIN-I < 0.010 ng/ml (0.000-0.120)
[2017-10-05] MEDS: OXYBUTYNIN 5 MG TAB PO ×3 (09:12→20:51)
[2017-10-05] MEDS: ASPIRIN 81 MG TAB PO (09:12)
[2017-10-05] MEDS: ENOXAPARIN 40 MG/0.4 ML SYG SC (09:14)
[2017-10-05 10:35] LABS: ADD MAN DIFF? NO
[2017-10-05 10:37] LABS: WHITE BLOOD COUNT 6.3 10^3/ul (4.8-10.8)
[2017-10-05 10:37] LABS: BASOPHILS % 0.5 % (0.0-2.0); EOSINOPHILS # 0.2 10^3/ul (0.0-0.5); EOSINOPHILS % 2.4 % (0.0-7.0); HEMATOCRIT 37.8 % (37.0-47.0); HEMOGLOBIN 12.1 g/dl (12.0-16.0); LYMPHOCYTES # 2.1 10^3/ul (0.8-2.9); LYMPHOCYTES % 32.6 % (15.0-51.0); MEAN CORPUSCULAR HEMOGLOBIN 31.4 pg (29.0-33.0); MEAN CORPUSCULAR VOLUME 98.2 fl (82.0-101.0); MEAN PLATELET VOLUME 9.9 fl (7.4-10.4); MONOCYTE # 0.5 10^3/ul (0.3-0.9); MONOCYTES % 8.4 % (0.0-11.0); NEUTROPHIL # 3.5 10^3/ul (1.6-7.5); NEUTROPHILS % 55.8 % (39.0-77.0); PLATELET COUNT 194 10^3/UL (140-415); RED BLOOD COUNT 3.85 10^6/ul (4.20-5.40); RED CELL DISTRIBUTION WIDTH 14.9 % (11.5-14.5)
[2017-10-05 10:57] LABS: ANION GAP 13 (8-16); BLOOD UREA NITROGEN 12 mg/dl (7-20); CALCIUM 9.3 mg/dl (8.4-10.2); CARBON DIOXIDE 28 mmol/L (21-31); CHLORIDE 105 mmol/L (97-110); CREATININE 0.75 mg/dl (0.44-1.00); GLUCOSE 142 mg/dl (70-220); POTASSIUM 4.6 mmol/L (3.5-5.1); SODIUM 141 mmol/L (135-144)
[2017-10-05 15:43] LABS: FREE T4 (FREE THYROXINE) 1.05 ng/dl (0.78-2.44)
[2017-10-05] MEDS: DOCUSATE SODIUM 100 MG CAP PO (20:51)
[2017-10-05] MEDS: morphine 2 MG INJ IV (20:56)
[2017-10-06] MEDS: LEVOTHYROXINE 50 MCG TAB PO (05:27)
[2017-10-06] MEDS: PANTOPRAZOLE (EC) 40 MG TAB PO (05:27)
[2017-10-06] MEDS: ASPIRIN 81 MG TAB PO (08:10)
[2017-10-06] MEDS: OXYBUTYNIN 5 MG TAB PO ×3 (08:10→21:28)
[2017-10-06 08:25] LABS: ADD MAN DIFF? NO
[2017-10-06 08:38] LABS: WHITE BLOOD COUNT 7.6 10^3/ul (4.8-10.8)
[2017-10-06 08:38] LABS: BASOPHILS % 0.4 % (0.0-2.0); EOSINOPHILS # 0.1 10^3/ul (0.0-0.5); EOSINOPHILS % 1.8 % (0.0-7.0); HEMATOCRIT 38.5 % (37.0-47.0); HEMOGLOBIN 12.4 g/dl (12.0-16.0); LYMPHOCYTES # 2.6 10^3/ul (0.8-2.9); LYMPHOCYTES % 33.4 % (15.0-51.0); MEAN CORPUSCULAR HEMOGLOBIN 31.4 pg (29.0-33.0); MEAN CORPUSCULAR HGB CONC 32.2 g/dl (32.0-37.0); MEAN CORPUSCULAR VOLUME 97.5 fl (82.0-101.0); MEAN PLATELET VOLUME 9.9 fl (7.4-10.4); MONOCYTE # 0.7 10^3/ul (0.3-0.9); MONOCYTES % 9.6 % (0.0-11.0); NEUTROPHIL # 4.2 10^3/ul (1.6-7.5); NEUTROPHILS % 54.4 % (39.0-77.0); PLATELET COUNT 221 10^3/UL (140-415); RED BLOOD COUNT 3.95 10^6/ul (4.20-5.40); RED CELL DISTRIBUTION WIDTH 14.8 % (11.5-14.5)
[2017-10-06] MEDS: ENOXAPARIN 40 MG/0.4 ML SYG SC (08:38)
[2017-10-06 08:58] LABS: HEMOGLOBIN A1C 5.5 % (0-5.9)
[2017-10-06 08:59] LABS: ANION GAP 11 (8-16); BLOOD UREA NITROGEN 14 mg/dl (7-20); CALCIUM 9.2 mg/dl (8.4-10.2); CARBON DIOXIDE 28 mmol/L (21-31); CHLORIDE 103 mmol/L (97-110); CREATININE 0.82 mg/dl (0.44-1.00); GLUCOSE 102 mg/dl (70-220); SODIUM 138 mmol/L (135-144)
[2017-10-06] MEDS: NAPROXEN 500 MG TAB PO ×2 (10:00→21:28)
[2017-10-06] MEDS: DOCUSATE SODIUM 100 MG CAP PO (13:03)
[2017-10-06] MEDS: SOD CHLORIDE 0.9% 500 ML IV (15:20)
[2017-10-06] MEDS ORDERED: SOD CHLORIDE 0.9% 250 ML IV (15:30)
[2017-10-06] MEDS: POLYETHYLENE GLYCOL 17 GM PACKET PO (16:51)
[2017-10-07] MEDS: morphine 2 MG INJ IV ×2 (02:23→13:42)
[2017-10-07] MEDS: LEVOTHYROXINE 50 MCG TAB PO (06:01)
[2017-10-07] MEDS: PANTOPRAZOLE (EC) 40 MG TAB PO (06:01)
[2017-10-07] MEDS: POLYETHYLENE GLYCOL 17 GM PACKET PO (08:46)
[2017-10-07] MEDS: ASPIRIN 81 MG TAB PO (08:46)
[2017-10-07] MEDS: NAPROXEN 500 MG TAB PO ×2 (08:46→20:28)
[2017-10-07] MEDS: OXYBUTYNIN 5 MG TAB PO ×3 (08:46→20:28)
[2017-10-07] MEDS: ENOXAPARIN 40 MG/0.4 ML SYG SC (08:51)
[2017-10-08] MEDS: PANTOPRAZOLE (EC) 40 MG TAB PO (05:21)
[2017-10-08] MEDS: LEVOTHYROXINE 50 MCG TAB PO (05:21)
[2017-10-08] MEDS: ASPIRIN 81 MG TAB PO (09:32)
[2017-10-08] MEDS: POLYETHYLENE GLYCOL 17 GM PACKET PO (09:32)
[2017-10-08] MEDS: OXYBUTYNIN 5 MG TAB PO ×3 (09:32→20:35)
[2017-10-08] MEDS: ENOXAPARIN 40 MG/0.4 ML SYG SC (09:49)
[2017-10-08] MEDS: morphine 2 MG INJ IV (14:05)
[2017-10-08] MEDS: NAPROXEN 500 MG TAB PO ×2 (14:51→20:35)
[2017-10-08] MEDS: morphine LIQ (10 MG/5 ML) CUP PO (22:11)
[2017-10-09] MEDS: LEVOTHYROXINE 50 MCG TAB PO ×2 (05:10→05:38)
[2017-10-09] MEDS: PANTOPRAZOLE (EC) 40 MG TAB PO ×2 (05:10→05:38)
[2017-10-09] MEDS: POLYETHYLENE GLYCOL 17 GM PACKET PO (09:00)
[2017-10-09] MEDS: OXYBUTYNIN 5 MG TAB PO ×3 (10:33→20:05)
[2017-10-09] MEDS: GABAPENTIN 300 MG CAP PO ×3 (10:33→20:05)
[2017-10-09] MEDS: NAPROXEN 500 MG TAB PO ×2 (10:33→20:04)
[2017-10-09] MEDS: ASPIRIN 81 MG TAB PO (10:34)
[2017-10-09] MEDS: ENOXAPARIN 40 MG/0.4 ML SYG SC (10:41)
[2017-10-09] MEDS: morphine LIQ (10 MG/5 ML) CUP PO (15:24)
[2017-10-09] MEDS: BETAMET NA PHOS/AC(6 MG/ML) 5ML INJ INJ (21:30)
[2017-10-09] MEDS: BUPIVACAINE 0.5%/EPI (SDV) 30 ML INJ INJ (21:30)
[2017-10-10] MEDS: morphine LIQ (10 MG/5 ML) CUP PO ×2 (02:15→10:18)
[2017-10-10] MEDS: PANTOPRAZOLE (EC) 40 MG TAB PO (06:21)
[2017-10-10] MEDS: LEVOTHYROXINE 50 MCG TAB PO (06:21)
[2017-10-10] MEDS: ASPIRIN 81 MG TAB PO (08:40)
[2017-10-10] MEDS: POLYETHYLENE GLYCOL 17 GM PACKET PO (08:41)
[2017-10-10] MEDS: GABAPENTIN 300 MG CAP PO ×2 (08:41→13:54)
[2017-10-10] MEDS: OXYBUTYNIN 5 MG TAB PO ×2 (08:41→13:55)
[2017-10-10] MEDS: NAPROXEN 500 MG TAB PO (08:42)
[2017-10-10] MEDS: ENOXAPARIN 40 MG/0.4 ML SYG SC (09:19)
== END 2017-10-10 19:46 | disposition home health service (06) | DRG 312 ==
LOC: TEL 22:43
PROVIDERS: Internal Medicine Nephrology
DX: R55 Syncope and collapse (principal); D35.01 Benign neoplasm of right adrenal gland; E03.9 Hypothyroidism, unspecified; F32.9 Major depressive disorder, single episode, unspecified; F41.9 Anxiety disorder, unspecified; N39.3 Stress incontinence (female) (male); I10 Essential (primary) hypertension; E78.5 Hyperlipidemia, unspecified; E86.0 Dehydration; R00.1 Bradycardia, unspecified; D64.9 Anemia, unspecified; M17.11 Unilateral primary osteoarthritis, right knee; F43.10 Post-traumatic stress disorder, unspecified; E66.9 Obesity, unspecified; Z68.30 Body mass index [BMI] 30.0-30.9, adult; Z79.82 Long term (current) use of aspirin; Z91.81 History of falling; Z90.49 Acquired absence of other specified parts of digestive tract
CPT/HCPCS: 70450; 73560; 73721; 80048; 80061; 82533; 82550; 82553; 83036; 84439; 84443; 84484; 85025; 85378; 93005; 93880; G0378